=== PATIENT | male | born 1955 | race Hispanic/Latino ===

== ENCOUNTER → 2018-04-18 | Outpatient (CLI) | payer OTHER | END | disposition home or self-care (01) | LOC: SHCH 10:30 | PROVIDERS: ATTEND Internal Medicine Cardiovascular Disease | DX: I25.10 Atherosclerotic heart disease of native coronary artery without angina pectoris (principal) | CPT/HCPCS: 93306 ==

== ENCOUNTER 2020-04-30 05:07 | Inpatient (IN) | payer OTHER ==
[~2020-04-30] VITALS: Ht 172.7 cm; Wt 71.7 kg
[2020-04-30] MEDS ORDERED: CEFTRIAXONE SODIUM 2 GM VIAL ONE (05:26)
[2020-04-30] MEDS ORDERED: AZITHROMYCIN 500MG+NS 250ML 250 ML IV ONE (05:27)
[2020-04-30 06:05] LABS: ABG BASE EXCESS -3.9 mmol/L (-2.0-3.0); ABG HCO3 18.4 mmol/L (21.0-28.0); ABG OXYGEN SATURATION 94.8 % (95.0-99.0); ABG PCO2 27 mmHg (35-48)
[2020-04-30 06:23] LABS: INR 0.92 (0.85-1.15); PARTIAL THROMBOPLASTIN TIME 36.4 SEC (26.3-35.5)
[2020-04-30 06:34] LABS: APPEARANCE,URINE CLEAR (CLEAR); BILIRUBIN,URINE NEGATIVE (NEGATIVE); COLOR,URINE YELLOW (YELLOW); GLUCOSE, URINE (UA) NEGATIVE (NEGATIVE); KETONES,URINE NEGATIVE (NEGATIVE); LEUKOCYTE ESTERASE ,URINE NEGATIVE (NEGATIVE); NITRATE,URINE NEGATIVE (NEGATIVE); OCCULT BLOOD,URINE NEGATIVE (NEGATIVE); PH,URINE 5.5 (5.0-8.0); PROTEIN,URINE 30 mg/dL (NEGATIVE)
[2020-04-30 06:38] LABS: ALBUMIN 2.7 g/dL (3.5-5.0); BILIRUBIN,TOTAL 0.6 mg/dL (0.2-1.0); CREATININE 1.7 mg/dL (0.5-1.5); POTASSIUM 3.9 mmol/L (3.5-5.1); TOTAL PROTEIN, SERUM 6.7 g/dL (6.0-8.3)
[2020-04-30 06:55] LABS: B-TYPE NATRIURETIC PEPTIDE 334 pg/mL (0-100)
[2020-04-30 07:17] LABS: BASOPHILS % (AUTO) 0.1 % (0.0-5.0); EOSINOPHILS % (AUTO) 1.7 % (0.0-8.0); HEMATOCRIT 39.7 % (42-54); LYMPHOCYTES % (AUTO) 12.1 % (21.0-51.0); MEAN CORPUSCULAR HEMOGLOBIN 28.1 pg (27.0-33.0); MEAN CORPUSCULAR HGB CONC 34.3 g/dL (32.0-36.0); MONOCYTES % (AUTO) 10.6 % (3.0-13.0); NEUTROPHILS % (AUTO) 75.1 % (40.0-77.0); PLATELET COUNT (AUTO) 170 K/uL (130-400); RED BLOOD CELL COUNT(AUTO) 4.84 MIL/uL (4.50-6.20); RED CELL DISTRIBUTION WIDTH 13.2 % (11.0-15.5)
[2020-04-30] MEDS: FAMOTIDINE 20MG TAB 20 MG TAB PO SCH ×2 (09:00→21:00)
[2020-04-30] MEDS ORDERED: ENOXAPARIN SODIUM 30 MG/0.3 ML SQ SCH (09:00)
[2020-04-30 09:22] LABS: BACTERIA,URINE Moderate /HPF (None Seen); RBC,URINE 0-1 /HPF (0-1); WBC,URINE 0-1 /HPF (0-1)
[2020-04-30] MEDS ORDERED: FAMOTIDINE 20MG TAB 20 MG TAB ONE ×2 (09:50→21:02)
[2020-04-30] MEDS ORDERED: ENOXAPARIN SODIUM 30 MG/0.3 ML SQ ONE (09:50)
[2020-04-30 10:34] LABS: ABG BASE EXCESS -0.2 mmol/L (-2.0-3.0); ABG HCO3 22.7 mmol/L (21.0-28.0); ABG PCO2 33 mmHg (35-48)
[2020-04-30 11:17] LABS: CRP QUANTITATIVE 197.4 mg/L (0.00-9.0)
[2020-04-30] MEDS: METHYLPREDNISOLONE SOD SUCC 40MG/ML 1ML IVP SCH ×2 (11:45→19:45)
[2020-04-30] MEDS: CEFEPIME HCL 2 GM VIAL IVP SCH ×2 (11:45→23:45)
[2020-04-30] MEDS ORDERED: CEFEPIME HCL 2 GM VIAL ONE (12:05)
--- NOTE | 2020-04-30 13:03 | NUR ---
DCP: HOME Sw spoke to pt's Alberta Roa [phone]. Pt lives with , he is on SSD. 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 Pt is independent, no DME or HH services reports . Pt is seen at [facility] and has pt assistance programs that send kidney meds by mail quarterly. Plan [place] home [place] Addendum: 04/30/20 at 1306 by YULIANA MARIE SS Amended: Links added.
[2020-04-30] MEDS ORDERED: METHYLPREDNISOLONE SOD SUCC 40MG/ML 1ML ONE ×2 (13:38→22:24)
[2020-04-30] MEDS: FUROSEMIDE 10 MG/ML 4ML VIAL IV SCH ×2 (15:00→23:00)
[2020-04-30] MEDS ORDERED: FUROSEMIDE 10 MG/ML 4ML VIAL ONE (16:38)
[2020-04-30] MEDS: DOXYCYCLINE HYCLATE 100 MG TABLET PO SCH (21:00)
[2020-04-30] MEDS: TACROLIMUS 0.5 MG CAPSULE PO SCH (21:00)
[2020-04-30] MEDS: ENOXAPARIN SODIUM 100 MG/1 ML SQ SCH (21:00)
[2020-04-30] MEDS ORDERED: DOXYCYCLINE HYCLATE 100 MG TABLET PO ONE (21:01)
[2020-04-30] MEDS ORDERED: ENOXAPARIN SODIUM 100 MG/1 ML SQ ONE (22:33)
[2020-05-01] MEDS ORDERED: METHYLPREDNISOLONE SOD SUCC 125MG/2ML VIAL ONE (01:24)
[2020-05-01] MEDS ORDERED: CEFEPIME HCL 2 GM VIAL ONE ×2 (01:24→14:38)
[2020-05-01] MEDS ORDERED: FUROSEMIDE 10 MG/ML 4ML VIAL ONE ×3 (01:32→18:24)
[2020-05-01] MEDS: METHYLPREDNISOLONE SOD SUCC 40MG/ML 1ML IVP SCH ×3 (03:45→19:45)
[2020-05-01 04:50] LABS: EOSINOPHILS % (AUTO) 2.1 % (0.0-8.0); HEMATOCRIT 41.1 % (42-54); LYMPHOCYTES % (AUTO) 11.5 % (21.0-51.0); MEAN CORPUSCULAR HEMOGLOBIN 27.4 pg (27.0-33.0); MEAN CORPUSCULAR HGB CONC 33.8 g/dL (32.0-36.0); MEAN CORPUSCULAR VOLUME 81.1 fL (79-99); MONOCYTES % (AUTO) 9.6 % (3.0-13.0); NEUTROPHILS % (AUTO) 76.3 % (40.0-77.0); PLATELET COUNT (AUTO) 204 K/uL (130-400); RED BLOOD CELL COUNT(AUTO) 5.07 MIL/uL (4.50-6.20); RED CELL DISTRIBUTION WIDTH 13.4 % (11.0-15.5); WHITE BLOOD COUNT (AUTO) 6.2 K/uL (4.8-10.8)
[2020-05-01 05:23] LABS: ALBUMIN 2.2 g/dL (3.5-5.0); BILIRUBIN,TOTAL 0.7 mg/dL (0.2-1.0); CREATININE 1.5 mg/dL (0.5-1.5); MAGNESIUM 2.4 mg/dL (1.80-2.40); PHOSPHORUS 3.1 mg/dL (2.5-4.9); POTASSIUM 4.5 mmol/L (3.5-5.1); TOTAL PROTEIN, SERUM 6.8 g/dL (6.0-8.3); URIC ACID 7.6 mg/dL (2.6-7.2)
[2020-05-01] MEDS: FUROSEMIDE 10 MG/ML 4ML VIAL IV SCH ×3 (07:00→23:00)
[2020-05-01] MEDS ORDERED: METHYLPREDNISOLONE SOD SUCC 40MG/ML 1ML ONE ×2 (08:26→18:24)
[2020-05-01] MEDS ORDERED: ENOXAPARIN SODIUM 100 MG/1 ML SQ ONE (08:26)
[2020-05-01] MEDS ORDERED: DOXYCYCLINE HYCLATE 100 MG TABLET PO ONE ×2 (08:26→20:06)
[2020-05-01] MEDS ORDERED: FAMOTIDINE 20MG TAB 20 MG TAB ONE ×2 (08:27→20:28)
[2020-05-01] MEDS: DOXYCYCLINE HYCLATE 100 MG TABLET PO SCH ×2 (09:00→21:00)
[2020-05-01] MEDS: ENOXAPARIN SODIUM 100 MG/1 ML SQ SCH ×2 (09:00→21:00)
[2020-05-01] MEDS: TACROLIMUS 0.5 MG CAPSULE PO SCH ×2 (09:00→21:00)
[2020-05-01] MEDS: FAMOTIDINE 20MG TAB 20 MG TAB PO SCH ×2 (09:00→21:00)
[2020-05-01] MEDS: CEFEPIME HCL 2 GM VIAL IVP SCH ×2 (11:45→23:45)
--- NOTE | 2020-05-01 16:51 | NUR ---
very tired and sob, cannot answer questions. pulling off 02 sensor, nc, and trying to climb off stretcher, screaming HELP HELD, er nurse in and adm database suspended
[2020-05-01] MEDS ORDERED: LORAZEPAM 0.5 MG TABLET ONE (17:33)
--- NOTE | 2020-05-01 19:49 | NUR ---
Pt refuses to wear hiflo cannula,will not let me place him on it.States that he just wanted to be left alone and .Maycol IBRAHIM from ER was notified.He stated that he will try and get a hold of his daughter.
[2020-05-01] MEDS ORDERED: ENOXAPARIN SODIUM 80 MG/0.8 ML SQ ONE (20:06)
--- NOTE | 2020-05-01 20:06 | NUR ---
Antonia douglass and I were able to convince pt to wear hiflo at 60L 100% pt was 60% saturation, now he sating 100%
[2020-05-02] MEDS: METHYLPREDNISOLONE SOD SUCC 40MG/ML 1ML IVP SCH ×2 (03:45→11:45)
[2020-05-02] MEDS: FUROSEMIDE 10 MG/ML 4ML VIAL IV SCH ×3 (07:00→23:46)
[2020-05-02] MEDS: ENOXAPARIN SODIUM 100 MG/1 ML SQ SCH ×2 (09:00→20:19)
[2020-05-02] MEDS: FAMOTIDINE 20MG TAB 20 MG TAB PO SCH ×2 (09:00→20:22)
[2020-05-02] MEDS: TACROLIMUS 0.5 MG CAPSULE PO SCH ×2 (09:00→20:21)
[2020-05-02] MEDS: DOXYCYCLINE HYCLATE 100 MG TABLET PO SCH ×2 (09:00→20:20)
[2020-05-02] MEDS ORDERED: ENOXAPARIN SODIUM 80 MG/0.8 ML SQ ONE (09:21)
[2020-05-02] MEDS ORDERED: DOXYCYCLINE HYCLATE 100 MG TABLET PO ONE (09:22)
[2020-05-02] MEDS ORDERED: METHYLPREDNISOLONE SOD SUCC 40MG/ML 1ML ONE (09:22)
[2020-05-02] MEDS ORDERED: CEFEPIME HCL 2 GM VIAL ONE (09:23)
[2020-05-02] MEDS ORDERED: FUROSEMIDE 10 MG/ML 4ML VIAL ONE (09:23)
[2020-05-02] MEDS ORDERED: FAMOTIDINE 20MG TAB 20 MG TAB ONE (09:23)
[2020-05-02] MEDS ORDERED: LORAZEPAM 0.5 MG TABLET ONE (09:40)
[2020-05-02 10:05] LABS: BASOPHILS % (AUTO) 0.1 % (0.0-5.0); HEMATOCRIT 41.6 % (42-54); LYMPHOCYTES % (AUTO) 6.1 % (21.0-51.0); MEAN CORPUSCULAR HGB CONC 33.9 g/dL (32.0-36.0); MEAN CORPUSCULAR VOLUME 82.7 fL (79-99); MONOCYTES % (AUTO) 16.5 % (3.0-13.0); NEUTROPHILS % (AUTO) 76.7 % (40.0-77.0); PLATELET COUNT (AUTO) 286 K/uL (130-400); RED BLOOD CELL COUNT(AUTO) 5.03 MIL/uL (4.50-6.20); RED CELL DISTRIBUTION WIDTH 13.7 % (11.0-15.5); WHITE BLOOD COUNT (AUTO) 11.5 K/uL (4.8-10.8)
[2020-05-02 11:12] LABS: CREATININE 2.4 mg/dL (0.5-1.5); POTASSIUM 4.2 mmol/L (3.5-5.1)
[2020-05-02] MEDS: CEFEPIME HCL 2 GM VIAL IVP SCH ×2 (11:45→23:46)
[2020-05-02 17:30] VITALS: BP 107/73
[2020-05-02 19:48] VITALS: BP 136/65
[2020-05-02] MEDS: DEXAMETHASONE 4 MG TAB PO SCH (20:21)
[2020-05-02 23:45] VITALS: BP 146/75
[2020-05-03 04:00] VITALS: BP 143/66
[2020-05-03] MEDS: FUROSEMIDE 10 MG/ML 4ML VIAL IV SCH (06:24)
[2020-05-03 08:00] VITALS: BP 129/60
[2020-05-03] MEDS: FAMOTIDINE 20MG TAB 20 MG TAB PO SCH ×3 (08:22→21:13)
[2020-05-03] MEDS: DOXYCYCLINE HYCLATE 100 MG TABLET PO SCH ×3 (08:22→21:13)
[2020-05-03] MEDS: TACROLIMUS 0.5 MG CAPSULE PO SCH ×3 (08:23→21:13)
[2020-05-03] MEDS: ENOXAPARIN SODIUM 100 MG/1 ML SQ SCH ×2 (08:23→12:31)
[2020-05-03] MEDS: DEXAMETHASONE 4 MG TAB PO SCH (08:33)
[2020-05-03] MEDS: ASCORBIC ACID 500 MG TAB PO SCH (08:35)
[2020-05-03] MEDS ORDERED: GLUCAGON 1MG KIT 1 MG ML IM PRN (09:45)
[2020-05-03] MEDS ORDERED: ALBUTEROL SULFATE/IPRATROPIUM 103/18 MCG/PUFF 14.7 GM INHR IH PRN (10:00)
[2020-05-03] MEDS ORDERED: INSULIN HUMULIN R 100 UNIT/ML 3ML SQ SCH (11:30)
[2020-05-03 12:00] VITALS: BP 128/83
[2020-05-03] MEDS: DEXAMETHASONE SOD PHOSPHATE 4 MG/ML 1ML VIAL IV SCH (12:28)
[2020-05-03] MEDS: CEFEPIME HCL 2 GM VIAL IVP SCH (12:33)
[2020-05-03 13:51] LABS: BASOPHILS % (AUTO) 0.1 % (0.0-5.0); HEMATOCRIT 41.9 % (42-54); LYMPHOCYTES % (AUTO) 3.7 % (21.0-51.0); MEAN CORPUSCULAR HEMOGLOBIN 27.1 pg (27.0-33.0); MEAN CORPUSCULAR HGB CONC 32.9 g/dL (32.0-36.0); MEAN CORPUSCULAR VOLUME 82.2 fL (79-99); MONOCYTES % (AUTO) 12.5 % (3.0-13.0); NEUTROPHILS % (AUTO) 83.1 % (40.0-77.0); PLATELET COUNT (AUTO) 262 K/uL (130-400); RED CELL DISTRIBUTION WIDTH 13.6 % (11.0-15.5); WHITE BLOOD COUNT (AUTO) 12.4 K/uL (4.8-10.8)
[2020-05-03 14:02] LABS: POTASSIUM 4.3 mmol/L (3.5-5.1)
[2020-05-03 14:03] LABS: CREATININE 2.3 mg/dL (0.5-1.5)
[2020-05-03] MEDS ORDERED: INSULIN HUMULIN R 100 UNIT/ML 3ML IV SCH (15:30)
[2020-05-03] MEDS: SODIUM CHLORIDE 0.9% 1000ML 1,000 ML IV SCH ×2 (15:45→21:13)
[2020-05-03 16:00] VITALS: BP 142/69
--- NOTE | 2020-05-03 16:49 | NUR ---
SARINA BRADEN CURATOR OF EDUCATION NOTIFIED ABOUT THE BLOOD GLUCOSE OF 700+ SHE ORDERED ONE TIME DOSE OF 10 UNITS REGULAR IV AND IF THE PATIENT WILL REMAIN HIGH THAT TO TRANSFER THE PATIENT TO ICU FOR INSULIN DRIP. AND MOREOVER, AND IF IT WILL DROP SIGNIFICANTLY THAT TO FOLLOW THE SLIDING SCALE. ALSO NOTIFY DR. DAWSON AND THAT HE AGREE WITH THE RECOMMENDATION OF SARINA BRADEN AND VERBALIZED THAT HE WILL MAKE SOME CHANGES ON THE SLIDING SCALE.
--- NOTE | 2020-05-03 16:57 | NUR ---
RECHECKED THE SUGAR AND IT DROP TO 593. HE ORDERED TO ADMINISTER 13 UNITS OF LISPRO SQ. WILL RECHECK THE BLOOD SUGAR IN ONE HOUR.
[2020-05-03] MEDS ORDERED: INSULIN LISPRO 100 UNIT/ML 3ML SQ SCH ×2 (17:00→18:25)
[2020-05-03] MEDS: INSULIN LISPRO 100 UNIT/ML 3ML SQ SCH ×3 (17:53→21:59)
--- NOTE | 2020-05-03 18:57 | NUR ---
notified jimena wynne floral assistant that dr. pemberton made changes on the insulin lispro 5 units to 7 units as well as the sliding scale he changed it to lispro from regular and ordered a one time dose of 13 units of insulin lispro and to administer the 7 units and the sliding scale. administered total of 23 units and will recheck the blood glucose in an hour. jimena wynne verbalized that if the patient will not go down to less than 350 that the patient will be needing an insulin drip and will be transfer to icu.
--- NOTE | 2020-05-03 19:20 | NUR ---
Report given to PATRICE Leslie in ICU pt to transfer for insulin gtt.
[2020-05-03 20:11] LABS: ABG BASE EXCESS -1.1 mmol/L (-2.0-3.0); ABG HCO3 21.6 mmol/L (21.0-28.0); ABG OXYGEN SATURATION 93.6 % (95.0-99.0); ABG PCO2 31 mmHg (35-48)
--- NOTE | 2020-05-03 20:35 | NUR ---
TRANSFER PT TRANSFER TO ICU BED 212 VIA BED.
[2020-05-03 20:49] VITALS: BP 143/80
[2020-05-03] MEDS: INSULIN GLARGINE 100 UNITS/ML 10 ML VIAL SQ SCH (21:59)
[2020-05-03 23:15] VITALS: BP 146/71
[2020-05-04 00:38] VITALS: BP 132/66
--- NOTE | 2020-05-04 03:54 | NUR ---
TRANSFER PT RECEIVED BACK ON UNIT FROM ICU, ORIENTED TO SELF ONLY. O2 SAT 94-96 ON NRB. PT ATTEMPTING TO REMOVE NRB 1:1 AT BEDSIDE PT REQUIRING CONTINUOS ASSISTANCE TO KEEP NRB ON.
[2020-05-04 04:09] VITALS: BP 153/78
[2020-05-04 05:50] LABS: BASOPHILS % (AUTO) 0.1 % (0.0-5.0); HEMATOCRIT 47.1 % (42-54); LYMPHOCYTES % (AUTO) 4.4 % (21.0-51.0); MEAN CORPUSCULAR HEMOGLOBIN 27.7 pg (27.0-33.0); MEAN CORPUSCULAR HGB CONC 33.8 g/dL (32.0-36.0); MEAN CORPUSCULAR VOLUME 82.1 fL (79-99); MONOCYTES % (AUTO) 10.5 % (3.0-13.0); PLATELET COUNT (AUTO) 282 K/uL (130-400); RED BLOOD CELL COUNT(AUTO) 5.74 MIL/uL (4.50-6.20); RED CELL DISTRIBUTION WIDTH 13.6 % (11.0-15.5); WHITE BLOOD COUNT (AUTO) 17.4 K/uL (4.8-10.8)
[2020-05-04] MEDS ORDERED: SODIUM CHLORIDE 0.9% 500ML 500 ML IV ONE (05:59)
[2020-05-04] MEDS: SODIUM CHLORIDE 0.9% 1000ML 1,000 ML IV SCH (06:06)
[2020-05-04 06:07] LABS: ALBUMIN 2.9 g/dL (3.5-5.0); BILIRUBIN,TOTAL 0.6 mg/dL (0.2-1.0); CREATININE 1.7 mg/dL (0.5-1.5); CRP QUANTITATIVE 54.3 mg/L (0.00-9.0); MAGNESIUM 2.9 mg/dL (1.80-2.40); POTASSIUM 3.7 mmol/L (3.5-5.1); TOTAL PROTEIN, SERUM 7.2 g/dL (6.0-8.3)
--- NOTE | 2020-05-04 06:29 | NUR ---
NA NOTED NA ON AM LABS 153 PT DUE FOR ADDITIONAL 0.[address] PAGE TO DR DAWSON TO VERIFY CONTINUE TO GIVE. AWAITING CALL BACK.
[2020-05-04] MEDS: INSULIN LISPRO 100 UNIT/ML 3ML SQ SCH ×8 (06:38→20:44)
[2020-05-04] MEDS: DEXTROSE 5%-WATER 1,000 ML IV SCH ×2 (10:22→21:19)
[2020-05-04] MEDS: ASCORBIC ACID 500 MG TAB PO SCH (10:23)
[2020-05-04] MEDS: ENOXAPARIN SODIUM 100 MG/1 ML SQ SCH (10:23)
[2020-05-04] MEDS: TACROLIMUS 0.5 MG CAPSULE PO SCH ×2 (10:23→21:17)
[2020-05-04] MEDS: DEXAMETHASONE SOD PHOSPHATE 4 MG/ML 1ML VIAL IV SCH (10:24)
[2020-05-04] MEDS: DOXYCYCLINE HYCLATE 100 MG TABLET PO SCH ×2 (10:24→21:17)
--- NOTE | 2020-05-04 10:34 | NUR ---
DYSPHAGIA EVALUATION COMPLETED. -S/S OF ASPIRATION. RECOMMEND MECHANICAL SOFT/CHOPPED, THIN LIQUIDS; PILLS CRUSHED WITH APPLESAUCE. CONSIDER SUPPLEMENTATION WITH IV VS NG TUBE DUE TO POOR INTAKE SECONDARY TO CONFUSION. WAREHOUSE LEAD COORDINATED CARE AND RECOMMENDATIONS WITH NURSE GABRIEL. Addendum: 05/04/20 at 1037 by SERENA IQBAL, [facility] Amended: Links added.
--- NOTE | 2020-05-04 14:23 | NUR ---
FOLLOW UP COMPLETED. LEAD SYSTEMS ARCHITECT COORDINATED CARE WITH NURSE. NURSING ATTEMPTED TO PLACE NG TUBE, HOWEVER, Pt REFUSING, AND PULLING IT OUT. NURSE ATTEMPTED MEDICATIONS THIS AM WITH Pt SPITTING THEM OUT. RECOMMEND P.O. SUPPLEMENTATION VIA IV IF NG TUBE IS NOT SUCCESSFULLY PLACED. NURSING VERBALIZED COMPLIANCE WITH RECOMMENDATIONS. LEAD SYSTEMS ARCHITECT WILL CONTINUE TO FOLLOW Pt. Addendum: 05/04/20 at [address] Amended: Links added.
[2020-05-04 16:00] VITALS: BP 141/69
[2020-05-04 19:25] VITALS: BP 149/78
[2020-05-04 19:29] VITALS: BP 148/81
[2020-05-04] MEDS: INSULIN GLARGINE 100 UNITS/ML 10 ML VIAL SQ SCH (20:45)
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
--- NOTE | 2020-05-04 23:40 | NUR ---
PLASMA CONSENT/CODE STATUS TELEPHONE CALL TO CONSENT RECEIVED FOR PLASMA ADMINISTRATION. VERIFIED CODE STATUS WITH SHE WISHES PT TO BE FULL CODE.
[2020-05-05 03:00] VITALS: BP 165/77
[2020-05-05 05:32] LABS: BASOPHILS % (AUTO) 0.2 % (0.0-5.0); HEMATOCRIT 43.4 % (42-54); LYMPHOCYTES % (AUTO) 5.9 % (21.0-51.0); MEAN CORPUSCULAR HEMOGLOBIN 27.3 pg (27.0-33.0); MEAN CORPUSCULAR HGB CONC 32.9 g/dL (32.0-36.0); MEAN CORPUSCULAR VOLUME 82.8 fL (79-99); MONOCYTES % (AUTO) 8.9 % (3.0-13.0); NEUTROPHILS % (AUTO) 83.6 % (40.0-77.0); PLATELET COUNT (AUTO) 205 K/uL (130-400); RED BLOOD CELL COUNT(AUTO) 5.24 MIL/uL (4.50-6.20); RED CELL DISTRIBUTION WIDTH 13.7 % (11.0-15.5); WHITE BLOOD COUNT (AUTO) 17.8 K/uL (4.8-10.8)
[2020-05-05 05:45] LABS: CREATININE 1.7 mg/dL (0.5-1.5); CRP QUANTITATIVE 49.1 mg/L (0.00-9.0); MAGNESIUM 2.9 mg/dL (1.80-2.40); PHOSPHORUS 3.4 mg/dL (2.5-4.9); URIC ACID 9.9 mg/dL (2.6-7.2)
[2020-05-05 05:58] LABS: HEMOGLOBIN A1C 8.8 % (4.0-6.0)
--- NOTE | 2020-05-05 05:58 | NUR ---
GLUCOSE CALL FROM LAB FOR RESULT OF GLUCOSE OF 400 HOWEVER PT HAS D5 INFUSING IN SAME ARM AND PUMP WAS NOT ON HOLD DURING DRAW, ACCUCHECK = 303.
[2020-05-05] MEDS: INSULIN LISPRO 100 UNIT/ML 3ML SQ SCH ×7 (06:25→20:50)
[2020-05-05] MEDS: DEXAMETHASONE SOD PHOSPHATE 4 MG/ML 1ML VIAL IV SCH (07:43)
--- NOTE | 2020-05-05 08:00 | NUR ---
ASSESSMENT PT IS AWAKE BUT CONFUSED. RESPONDS TO NAME BUT VERBALIZES INCOHERENT WORDS. SITTING UPRIGHT IN BED WITH HOB UP AT 40 DEGREES, SIDE RAILS UP X4 WITH 1:[address]. O2 VIA NONREBREATHER MASK AT 15LPM, O2 SAT 98-100%. PATIENT FLAILS HIS ARMS PERIODICALLY. BILATERAL MITTENS IN PLACE NO BRUISING NOTED TO WRISTS. PATIENT REMOVED HIS IV, NEW PIV STARTED TO RIGHT FA 20G. IV FLUIDS INFUSING ORDERED. CONTINUING TO MONITOR
[2020-05-05] MEDS: TACROLIMUS 0.5 MG CAPSULE PO SCH ×2 (08:55→20:48)
[2020-05-05] MEDS: FAMOTIDINE 20MG TAB 20 MG TAB PO SCH (08:55)
[2020-05-05] MEDS: DOXYCYCLINE HYCLATE 100 MG TABLET PO SCH ×2 (08:55→20:48)
[2020-05-05] MEDS: ENOXAPARIN SODIUM 100 MG/1 ML SQ SCH (08:56)
[2020-05-05] MEDS: ASCORBIC ACID 500 MG TAB PO SCH (08:56)
[2020-05-05] MEDS: DEXTROSE 5%-WATER 1,000 ML IV SCH (10:17)
--- NOTE | 2020-05-05 10:37 | NUR ---
FOLLOW UP COMPLETED. Pt CONTINUES TO BE CONFUSED WITH 1:1 SITTER AT THIS TIME. Pt WITH DIFFICULTY TAKING MEDICATIONS AT THIS TIME DUE TO POOR MENTAL STATUS. Pt WITH HIGH SODIUM LEVEL AT THIS TIME. NG IS NOT IN PLACE DUE TO Pt NOT ALLOWING PLACEMENT. Pt CURRENTLY ON D5 WATER. RECOMMEND CONTINUED ATTEMPT FOR P.O. TOLERATED BY Pt. TUG BOAT CAPTAIN COORDINATED WITH NURSE FRIAS. TUG BOAT CAPTAIN WILL CONTINUE TO FOLLOW Pt. Addendum: 05/05/20 at 1044 by SERENA IQBAL, [facility] Amended: Links added.
[2020-05-05] MEDS ORDERED: TACR1 PO (10:59)
[2020-05-05] MEDS ORDERED: LISI40TA4 PO (10:59)
[2020-05-05] MEDS ORDERED: ATOR20TA65 PO (10:59)
[2020-05-05] MEDS ORDERED: TACR.5 PO (10:59)
[2020-05-05] MEDS ORDERED: AMLO10TA7 PO (10:59)
[2020-05-05 11:00] VITALS: BP 139/60
[2020-05-05] MEDS ORDERED: INSULIN GLARGINE 100 UNITS/ML 10 ML VIAL SQ SCH (11:00)
--- NOTE | 2020-05-05 13:00 | NUR ---
DR DAWSON TELE MED DONE VIA TABLET
[2020-05-05 16:00] VITALS: BP 155/70
[2020-05-05 19:00] VITALS: BP 154/80
[2020-05-05] MEDS ORDERED: ACETAMINOPHEN 325 MG TAB PO ONE (20:45)
--- NOTE | 2020-05-05 20:45 | NUR ---
BS/HR/TEMP BS 95, PT RECEIVED 20 UNITS LANTUS AT 1200 AND IS SCHEDULED NOW HAS NOT BEEN TAKING PO BUT IS ON D5 @ 75 ML. HR SUSTAINING 120S, TEMP 100.5 AXILLARY. OUTSIDE SALES EXECUTIVE PROVIDER COLLEGE PRESIDENT AJ NOTIFIED OF ABOVE AND ORDERS RECEIVED TO HOLD LANTUS, INCREASE D5 TO 100 ML HR AND GIVE TYLENOL 650 X1.
[2020-05-05] MEDS: INSULIN GLARGINE 100 UNITS/ML 10 ML VIAL SQ SCH (20:51)
[2020-05-05 23:08] VITALS: BP 151/82
[2020-05-06] MEDS: DEXTROSE 5%-WATER 1,000 ML IV SCH ×3 (00:44→21:54)
[2020-05-06 03:14] VITALS: BP 161/83
[2020-05-06 05:09] LABS: BASOPHILS % (AUTO) 0.2 % (0.0-5.0); EOSINOPHILS % (AUTO) 0.1 % (0.0-8.0); HEMATOCRIT 47.7 % (42-54); LYMPHOCYTES % (AUTO) 9.3 % (21.0-51.0); MEAN CORPUSCULAR HEMOGLOBIN 27.7 pg (27.0-33.0); MEAN CORPUSCULAR HGB CONC 32.5 g/dL (32.0-36.0); MEAN CORPUSCULAR VOLUME 85.2 fL (79-99); MONOCYTES % (AUTO) 12.3 % (3.0-13.0); NEUTROPHILS % (AUTO) 76.7 % (40.0-77.0); PLATELET COUNT (AUTO) 161 K/uL (130-400); RED CELL DISTRIBUTION WIDTH 13.8 % (11.0-15.5); WHITE BLOOD COUNT (AUTO) 16.3 K/uL (4.8-10.8)
[2020-05-06 05:24] LABS: ALBUMIN 2.5 g/dL (3.5-5.0); BILIRUBIN,TOTAL 0.8 mg/dL (0.2-1.0); CREATININE 1.7 mg/dL (0.5-1.5); CRP QUANTITATIVE 34.5 mg/L (0.00-9.0); POTASSIUM 4.7 mmol/L (3.5-5.1); TOTAL PROTEIN, SERUM 6.3 g/dL (6.0-8.3)
[2020-05-06] MEDS: INSULIN LISPRO 100 UNIT/ML 3ML SQ SCH ×7 (06:10→21:53)
[2020-05-06 08:00] VITALS: BP 142/73
--- NOTE | 2020-05-06 08:00 | NUR ---
ASSESSMENT PT IS LAYING UPRIGHT IN BED, RESPONDS WHEN ASKED HIS NAME. SPEAKS CONFUSED/INCOHERENT PHRASES. PATIENT WAS REORIENTED TO PLACE AND TIME. PATIENT IS NONCOMBATIVE. PATIENT IS SITTING UPRIGHT IN BED HOB UP AT 35 DEGREES. BREATHING PATTERN IS EVEN AND UNLABORED WHILE AT REST, TACHYPNEA NOTED. CURRENTLY ON O2 VIA NONREBTREATHER MASK. NO VISIBLE SIGNS OF DISTRESS NOTED WHILE AT REST. BILATERAL MITTENS IN PLACE, NO BRUISING NOTED TO WRISTS, CAP REFILL CHECKED TO FINGERS. AM MEDS GIVEN WITH APPLE JUICE AND SYRINGE, NO CHOKING NO GAGGING NO SPITTING NOTED. PT WAS ABLE TO EAT PART OF BREAKFAST WITH NURSE AIDE ASSISTANCE. SIDE RAILS UP X4 CALL LIGHT WITHIN REACH, BLINDS OPEN. 1:1 SITTER AT BEDSIDE.
[2020-05-06] MEDS: DOXYCYCLINE HYCLATE 100 MG TABLET PO SCH (08:17)
[2020-05-06] MEDS: ASCORBIC ACID 500 MG TAB PO SCH (08:17)
[2020-05-06] MEDS: TACROLIMUS 0.5 MG CAPSULE PO SCH ×2 (08:17→21:51)
[2020-05-06] MEDS: ENOXAPARIN SODIUM 100 MG/1 ML SQ SCH (08:17)
[2020-05-06] MEDS: FAMOTIDINE 20MG TAB 20 MG TAB PO SCH (08:17)
[2020-05-06] MEDS: DEXAMETHASONE SOD PHOSPHATE 4 MG/ML 1ML VIAL IV SCH (08:18)
[2020-05-06] MEDS: INSULIN GLARGINE 100 UNITS/ML 10 ML VIAL SQ SCH ×3 (08:38→21:54)
[2020-05-06] MEDS: LABETALOL 20 MG/4 ML DISP.SYRIN IV PRN (10:18)
--- NOTE | 2020-05-06 10:20 | NUR ---
HR VIA TELE >120 LABETALOL 10MG IV PUSH GIVEN CONTINUING TO MONITOR
[2020-05-06 11:00] VITALS: BP 132/62
--- NOTE | 2020-05-06 11:00 | NUR ---
O2 VIA NONREBREATHER DECREASED TO 10LPM O2 SAT 98-99%, CONTINUING TO MONITOR
--- NOTE | 2020-05-06 11:45 | NUR ---
O2 SAT MAINTAINS ABOVE 96% WHILE ON 10LPM NONRBREATHER AT THIS TIME 1:1 REMAINS AT BEDSIDE.
--- NOTE | 2020-05-06 12:28 | NUR ---
O2 SAT 91% ON NRB AT 10LPM PLACED NRB AT 15LPM. O2 SAT BACK UP TO 99%
--- NOTE | 2020-05-06 16:00 | NUR ---
STATUS REMAINS ON O2 VIA NRB MASK AT 15LPM. O2 SAT 96-99%. 1:1 SITTER REMAINS AT BEDSIDE.
--- NOTE | 2020-05-06 18:30 | NUR ---
HR REMAINS 80-90S SR PT RESTING IN BED, 1:1 SITTER AT BEDSIDE. O2 SAT REMAINS 98-99% ON 15LPM NRB MASK.
[2020-05-06 20:30] VITALS: BP 126/66
[2020-05-07] VITALS (7 sets, daily range): BP systolic 139–159; BP diastolic 63–74
--- NOTE | 2020-05-07 04:04 | NUR ---
02 SAT 02 SAT 100% ON NRB @15L, O2 DECREASED TO 10 L PT MAINTAINING 02 SAT >95%.
[2020-05-07] MEDS: DEXTROSE 5%-WATER 1,000 ML IV SCH ×2 (06:15→15:33)
[2020-05-07] MEDS: INSULIN LISPRO 100 UNIT/ML 3ML SQ SCH ×7 (06:16→21:00)
[2020-05-07 07:55] LABS: BASOPHILS % (AUTO) 0.1 % (0.0-5.0); EOSINOPHILS % (AUTO) 1.2 % (0.0-8.0); HEMATOCRIT 46.6 % (42-54); LYMPHOCYTES % (AUTO) 7.1 % (21.0-51.0); MEAN CORPUSCULAR HEMOGLOBIN 27.1 pg (27.0-33.0); MEAN CORPUSCULAR HGB CONC 30.9 g/dL (32.0-36.0); MEAN CORPUSCULAR VOLUME 87.6 fL (79-99); MONOCYTES % (AUTO) 8.2 % (3.0-13.0); NEUTROPHILS % (AUTO) 82.4 % (40.0-77.0); PLATELET COUNT (AUTO) 134 K/uL (130-400); RED BLOOD CELL COUNT(AUTO) 5.32 MIL/uL (4.50-6.20); RED CELL DISTRIBUTION WIDTH 14.1 % (11.0-15.5); WHITE BLOOD COUNT (AUTO) 20.7 K/uL (4.8-10.8)
--- NOTE | 2020-05-07 08:00 | NUR ---
RECEIVED PATIENT ON BED WITH NO C/O SOB NOR PAIN. HE IS ON NON-REBREATHER 100% 15L. FULL ASSESSMENT DONE. PT IS A/0 X 2. SITTER AT BEDSIDE. MAINTAINED ENHANCED ISOLATION.
[2020-05-07] MEDS: DEXAMETHASONE SOD PHOSPHATE 4 MG/ML 1ML VIAL IV SCH (08:10)
[2020-05-07] MEDS: FAMOTIDINE 20MG TAB 20 MG TAB PO SCH (08:10)
[2020-05-07] MEDS: ASCORBIC ACID 500 MG TAB PO SCH (08:11)
[2020-05-07] MEDS: ENOXAPARIN SODIUM 100 MG/1 ML SQ SCH (08:12)
[2020-05-07] MEDS: TACROLIMUS 0.5 MG CAPSULE PO SCH ×2 (08:20→21:49)
[2020-05-07 08:44] LABS: ALBUMIN 2.2 g/dL (3.5-5.0); BILIRUBIN,TOTAL 0.7 mg/dL (0.2-1.0); CREATININE 1.5 mg/dL (0.5-1.5); CRP QUANTITATIVE 13.4 mg/L (0.00-9.0); POTASSIUM 4.7 mmol/L (3.5-5.1); TOTAL PROTEIN, SERUM 5.8 g/dL (6.0-8.3)
--- NOTE | 2020-05-07 10:56 | NUR ---
TELE MED CONDUCTED BY DR. DAWSON. INFORMED MD ABOUT HEMOPTYSIS. MD SAID TO MAKE PULMO AWARE OF THIS. PATIENT IS ON LOVENOX.
--- NOTE | 2020-05-07 11:10 | NUR ---
INFORMED BECKIE HARRISON ABOUT HEMOPTYSIS. DISCHARGE RN SAID TO KEEP MONITORING FOR NOW AND TO CALL HER IF IT PERSISTS.
--- NOTE | 2020-05-07 12:55 | NUR ---
DECREASED O2 FLOW OF NON-REBREATHER TO 12L. O2 SAT:97%. PATIENT APPEARS COMFORTABLE. PT DENIES SOB.
--- NOTE | 2020-05-07 13:15 | NUR ---
FOLLOW UP COMPLETED. MARKETING REPS SPORTS AND ENTERTAINMENT COORDINATED WITH NURSE ESCOBAR. Pt CURRENTLY REQUIRING ASSISTANCE DURING P.O. Pt WITH IMPROVED ALERTNESS AND COOPERATION. Pt CURRENTLY ON 12L VIA NON-REBREATHER AT 97% DURING P.O. RECOMMEND CONTINUED MECHANICAL SOFT/CHOPPED, THIN LIQUIDS LIQUIDS; PILLS CRUSHED WITH APPLESAUCE. MARKETING REPS SPORTS AND ENTERTAINMENT WILL CONTINUE TO FOLLOW Pt. Addendum: 05/07/20 at 1326 by SERENA IQBAL [facility] Amended: Links added.
--- NOTE | 2020-05-07 13:30 | NUR ---
DECREASED O2 FLOW TO 10L PER NRB. O2 SAT: 100%. PATIENT IS ASLEEP AT THIS TIME.
[2020-05-07] MEDS ORDERED: SODIUM CHLORIDE 0.9% 250 ML IV ONE (13:34)
[2020-05-07] MEDS ORDERED: AMLODIPINE BESYLATE 5 MG TAB PO SCH (13:45)
--- NOTE | 2020-05-07 13:45 | NUR ---
COMMENCED CONVALESCENT PLASMA TRANSFUSION ORDERED BY .
--- NOTE | 2020-05-07 14:58 | NUR ---
1ST UNIT OF CONVALESCENT PLASMA TRANSFUSED WITHOUT COMPLICATIONS.
--- NOTE | 2020-05-07 17:06 | NUR ---
RDSCREEN - LOS X 7 Pt positive for COVID-19. Modified diet to 75gm CCD. LBM 05/03/20. Hx of Renal transplant, Prograf. Vitamin C supplementation in place. Prograf in place. WBC 20.7, BUN 52, GFR 50, BG 199, Alb 2.2, BNP 334. Recommend 60mL ProMod BID Recommend 500mg Vitamin C (BID), 220mg ZnSO4 (QD) Recommend stool softener/laxative as medically feasible RD to continue to monitor. Please notify as additional nutrition concerns arise. Thank you.
--- NOTE | 2020-05-07 17:30 | NUR ---
2ND UNIT OF CONVALESCENT PLASMA COMPLETED WITHOUT TRANSFUSION REACTION. VITALS RECORDED ACCORDINGLY.
[2020-05-07] MEDS: INSULIN GLARGINE 100 UNITS/ML 10 ML VIAL SQ SCH (21:00)
[2020-05-07] MEDS: LISINOPRIL 10 MG TABLET PO SCH (21:49)
--- NOTE | 2020-05-07 21:52 | NUR ---
BS 80 BS 80 PT SCHEDULED FOR 25 UNITS LANTUS, HAS D5W @100 INFUSING REVIEWED WITH DONOR SUPPORT TECHNICIAN CLINICAL APPLICATION CONSULTANT AJ ORDER TO HOLD LANTUS TONIGHT.
[2020-05-08 03:51] VITALS: BP 140/60
[2020-05-08] MEDS: DEXTROSE 5%-WATER 1,000 ML IV SCH ×3 (04:02→21:34)
[2020-05-08 04:57] LABS: ABG HCO3 22.1 mmol/L (21.0-28.0); ABG OXYGEN SATURATION 84.7 % (95.0-99.0); ABG PCO2 33 mmHg (35-48)
[2020-05-08] MEDS: INSULIN LISPRO 100 UNIT/ML 3ML SQ SCH ×7 (06:22→21:32)
--- NOTE | 2020-05-08 06:48 | NUR ---
PM SHIFT SUMMARY PT RECEIVED A & OX2 TO SELF AND PLACE KNOWS YEAR BUT NOT MONTH/DATE. 02 SAT 94% ON NRB @10 L, ABLE TO REMAIN AT 10 L UNTIL APPROX 2300 THEN O2 SAT DECREASED TO MID 80S WITH MOVEMENT AND TALKING NRB BACK UP TO 15L O2 SAT REMAINS 91-94%. SITTER AT BEDSIDE. PT COOPERATIVE NOT PULLING AT TUBING/OXYGEN MITTEN REMOVED. AV FISTUAL TO LEFT ARM + BRUIT/THRILL. NO OTHER CHANGES FROM BASELINE SHIFT ASSESSMENT/ACUTE EVENTS.
[2020-05-08 08:00] VITALS: BP 152/64
[2020-05-08] MEDS: ENOXAPARIN SODIUM 100 MG/1 ML SQ SCH (09:33)
[2020-05-08] MEDS: DEXAMETHASONE SOD PHOSPHATE 4 MG/ML 1ML VIAL IV SCH (09:34)
[2020-05-08] MEDS: LISINOPRIL 10 MG TABLET PO SCH ×2 (09:34→21:33)
[2020-05-08] MEDS: TACROLIMUS 0.5 MG CAPSULE PO SCH ×2 (09:34→21:33)
[2020-05-08] MEDS: AMLODIPINE BESYLATE 5 MG TAB PO SCH (09:35)
[2020-05-08] MEDS: ASCORBIC ACID 500 MG TAB PO SCH (09:35)
[2020-05-08] MEDS ORDERED: PHARMACY COMMUNICATION MISC SCH (10:30)
[2020-05-08 11:00] VITALS: BP 141/53
--- NOTE | 2020-05-08 13:07 | NUR ---
Pt refused breakfast and lunch. Had 25% of glucerna for lunch. No insulin administered BS 154.
[2020-05-08 16:00] VITALS: BP 136/63
[2020-05-08 20:48] VITALS: BP 123/64
[2020-05-08] MEDS: INSULIN GLARGINE 100 UNITS/ML 10 ML VIAL SQ SCH (21:32)
[2020-05-08] MEDS: METOPROLOL TARTRATE 25 MG TAB PO SCH (21:33)
[2020-05-09] VITALS: BP 148/75
[2020-05-09 03:48] VITALS: BP 115/59
[2020-05-09 05:58] LABS: BASOPHILS % (AUTO) 0.1 % (0.0-5.0); EOSINOPHILS % (AUTO) 1.8 % (0.0-8.0); HEMATOCRIT 42.8 % (42-54); MEAN CORPUSCULAR HEMOGLOBIN 27.1 pg (27.0-33.0); MEAN CORPUSCULAR HGB CONC 31.8 g/dL (32.0-36.0); MEAN CORPUSCULAR VOLUME 85.3 fL (79-99); MONOCYTES % (AUTO) 10.4 % (3.0-13.0); NEUTROPHILS % (AUTO) 80.7 % (40.0-77.0); PLATELET COUNT (AUTO) 114 K/uL (130-400); RED BLOOD CELL COUNT(AUTO) 5.02 MIL/uL (4.50-6.20); RED CELL DISTRIBUTION WIDTH 13.5 % (11.0-15.5); WHITE BLOOD COUNT (AUTO) 20.7 K/uL (4.8-10.8)
[2020-05-09 06:12] LABS: ALBUMIN 1.9 g/dL (3.5-5.0); BILIRUBIN,TOTAL 0.7 mg/dL (0.2-1.0); CREATININE 1.3 mg/dL (0.5-1.5); CRP QUANTITATIVE 83.5 mg/L (0.00-9.0); POTASSIUM 4.9 mmol/L (3.5-5.1); TOTAL PROTEIN, SERUM 5.5 g/dL (6.0-8.3)
[2020-05-09] MEDS: INSULIN LISPRO 100 UNIT/ML 3ML SQ SCH ×7 (06:50→21:40)
[2020-05-09] MEDS: DEXTROSE 5%-WATER 1,000 ML IV SCH ×2 (08:25→17:38)
[2020-05-09] MEDS: LISINOPRIL 10 MG TABLET PO SCH ×2 (09:06→20:48)
[2020-05-09] MEDS: METOPROLOL TARTRATE 25 MG TAB PO SCH ×2 (09:06→20:48)
[2020-05-09] MEDS: ASCORBIC ACID 500 MG TAB PO SCH (09:07)
[2020-05-09] MEDS: DEXAMETHASONE SOD PHOSPHATE 4 MG/ML 1ML VIAL IV SCH (09:07)
[2020-05-09] MEDS: FAMOTIDINE/PF 20 MG/2 ML VIAL IV SCH (09:07)
[2020-05-09] MEDS: AMLODIPINE BESYLATE 5 MG TAB PO SCH (09:07)
[2020-05-09] MEDS: TACROLIMUS 0.5 MG CAPSULE PO SCH ×2 (09:14→20:49)
[2020-05-09] MEDS ORDERED: ENOXAPARIN SODIUM 30 MG/0.3 ML SQ SCH (10:00)
[2020-05-09 11:00] VITALS: BP 138/72
[2020-05-09 16:00] VITALS: BP 91/49
--- NOTE | 2020-05-09 16:40 | NUR ---
Attempted to prone patient. Oxygen saturations drop 60's with NRB at 15lpm, pt SOB and returned to supine with HOB elevated. Sating 91%.
[2020-05-09] MEDS: METHYLPREDNISOLONE SOD SUCC 125MG/2ML VIAL IVP SCH ×2 (17:03→21:55)
[2020-05-09 20:26] VITALS: BP 114/82
[2020-05-09] MEDS: INSULIN GLARGINE 100 UNITS/ML 10 ML VIAL SQ SCH (21:41)
[2020-05-10] VITALS (7 sets, daily range): BP systolic 98–144; BP diastolic 46–79
[2020-05-10 05:21] LABS: ABG BASE EXCESS -1.4 mmol/L (-2.0-3.0); ABG HCO3 21.7 mmol/L (21.0-28.0); ABG OXYGEN SATURATION 75.2 % (95.0-99.0); ABG PCO2 33 mmHg (35-48)
[2020-05-10 05:36] LABS: HEMATOCRIT 42.8 % (42-54); MEAN CORPUSCULAR HEMOGLOBIN 27.7 pg (27.0-33.0); MEAN CORPUSCULAR VOLUME 86.5 fL (79-99); RED BLOOD CELL COUNT(AUTO) 4.95 MIL/uL (4.50-6.20); RED CELL DISTRIBUTION WIDTH 13.2 % (11.0-15.5); WHITE BLOOD COUNT (AUTO) 22.8 K/uL (4.8-10.8)
[2020-05-10] MEDS: DEXTROSE 5%-WATER 1,000 ML IV SCH ×3 (05:42→20:51)
[2020-05-10] MEDS: METHYLPREDNISOLONE SOD SUCC 125MG/2ML VIAL IVP SCH ×3 (05:42→20:50)
[2020-05-10 05:51] LABS: CREATININE 1.3 mg/dL (0.5-1.5); POTASSIUM 5.2 mmol/L (3.5-5.1)
[2020-05-10 06:21] LABS: CRP QUANTITATIVE 151.7 mg/L (0.00-9.0)
[2020-05-10] MEDS: LISINOPRIL 10 MG TABLET PO SCH ×2 (10:06→20:50)
[2020-05-10] MEDS: TACROLIMUS 0.5 MG CAPSULE PO SCH ×2 (10:06→20:50)
[2020-05-10] MEDS: ASCORBIC ACID 500 MG TAB PO SCH (10:06)
[2020-05-10] MEDS: METOPROLOL TARTRATE 25 MG TAB PO SCH ×2 (10:06→20:50)
[2020-05-10] MEDS: AMLODIPINE BESYLATE 5 MG TAB PO SCH (10:06)
[2020-05-10] MEDS: ENOXAPARIN SODIUM 30 MG/0.3 ML SQ SCH (10:07)
[2020-05-10] MEDS: FAMOTIDINE/PF 20 MG/2 ML VIAL IV SCH (10:08)
[2020-05-10] MEDS ORDERED: SODIUM POLYSTYRENE SULFONATE 15 GM/60 ML ML PO SCH (10:30)
[2020-05-10] MEDS: INSULIN LISPRO 100 UNIT/ML 3ML SQ SCH ×8 (11:41→20:52)
--- NOTE | 2020-05-10 14:22 | NUR ---
PHONE CALL Family updated.
[2020-05-10] MEDS: DEXTROSE 50%-WATER 50 ML DISP.SYRIN IV PRN (20:51)
[2020-05-10] MEDS ORDERED: INSULIN GLARGINE 100 UNITS/ML 10 ML VIAL SQ SCH ×2 (21:00)
[2020-05-11 04:20] VITALS: BP 121/62
[2020-05-11 04:31] LABS: BASOPHILS % (AUTO) 0.1 % (0.0-5.0); HEMATOCRIT 43.6 % (42-54); LYMPHOCYTES % (AUTO) 2.9 % (21.0-51.0); MEAN CORPUSCULAR HEMOGLOBIN 27.8 pg (27.0-33.0); MEAN CORPUSCULAR VOLUME 84.2 fL (79-99); MONOCYTES % (AUTO) 5.7 % (3.0-13.0); NEUTROPHILS % (AUTO) 90.4 % (40.0-77.0); PLATELET COUNT (AUTO) 157 K/uL (130-400); RED BLOOD CELL COUNT(AUTO) 5.18 MIL/uL (4.50-6.20); RED CELL DISTRIBUTION WIDTH 13.3 % (11.0-15.5); WHITE BLOOD COUNT (AUTO) 25.2 K/uL (4.8-10.8)
[2020-05-11 04:58] LABS: CREATININE 1.3 mg/dL (0.5-1.5); MAGNESIUM 2.7 mg/dL (1.80-2.40); PHOSPHORUS 5.2 mg/dL (2.5-4.9); POTASSIUM 4.1 mmol/L (3.5-5.1)
[2020-05-11] MEDS: METHYLPREDNISOLONE SOD SUCC 125MG/2ML VIAL IVP SCH ×3 (06:03→21:25)
[2020-05-11] MEDS: INSULIN LISPRO 100 UNIT/ML 3ML SQ SCH ×6 (07:30→20:10)
[2020-05-11 08:00] VITALS: BP 136/62
[2020-05-11] MEDS: FAMOTIDINE/PF 20 MG/2 ML VIAL IV SCH (09:13)
[2020-05-11] MEDS: TACROLIMUS 0.5 MG CAPSULE PO SCH ×2 (09:13→21:27)
[2020-05-11] MEDS: ASCORBIC ACID 500 MG TAB PO SCH (09:13)
[2020-05-11] MEDS: LISINOPRIL 10 MG TABLET PO SCH ×2 (09:13→21:27)
[2020-05-11] MEDS: AMLODIPINE BESYLATE 5 MG TAB PO SCH (09:13)
[2020-05-11] MEDS: METOPROLOL TARTRATE 25 MG TAB PO SCH ×2 (09:13→21:26)
[2020-05-11] MEDS: ENOXAPARIN SODIUM 30 MG/0.3 ML SQ SCH ×2 (09:14→21:28)
[2020-05-11] MEDS: DEXTROSE 5%-WATER 1,000 ML IV SCH ×2 (10:17→19:43)
[2020-05-11 12:15] VITALS: BP 137/79
--- NOTE | 2020-05-11 14:12 | NUR ---
FOLLOW UP COMPLETED. Pt FOLLOWING COMMANDS TODAY. Pt REQUIRES ASSISTANCE DURING P.O. Pt CURRENTLY ON REGULAR TEXTURE, THIN LIQUIDS; PILLS CRUSHED WITH APPLESAUCE. NO OVERT S/S OF ASPIRATION REPORTED AT THIS TIME. RECOMMEND CONTINUED P.O. TOLERATED BY Pt. RECOMMENDATIONS ARE FOR OK FOR CURRENT RESPIRATORY STATUS. PLEASE RE-CONSULT WATER SAFETY INSTRUCTOR IF CURRENT STATUS DECLINES. Addendum: 05/11/20 at 1420 by SERENA IQBAL [facility] Amended: Links added.
[2020-05-11 16:25] VITALS: BP 111/53
[2020-05-11 19:30] VITALS: BP 119/46
[2020-05-11] MEDS: INSULIN GLARGINE 100 UNITS/ML 10 ML VIAL SQ SCH (21:00)
[2020-05-12] VITALS: BP 122/70
[2020-05-12 04:23] VITALS: BP 108/56
[2020-05-12] MEDS: METHYLPREDNISOLONE SOD SUCC 125MG/2ML VIAL IVP SCH ×3 (04:48→21:26)
[2020-05-12] MEDS: DEXTROSE 5%-WATER 1,000 ML IV SCH (04:48)
[2020-05-12 05:44] LABS: BASOPHILS % (AUTO) 0.1 % (0.0-5.0); HEMATOCRIT 44.1 % (42-54); LYMPHOCYTES % (AUTO) 4.1 % (21.0-51.0); MEAN CORPUSCULAR HEMOGLOBIN 27.8 pg (27.0-33.0); MEAN CORPUSCULAR HGB CONC 32.9 g/dL (32.0-36.0); MEAN CORPUSCULAR VOLUME 84.5 fL (79-99); MONOCYTES % (AUTO) 5.3 % (3.0-13.0); NEUTROPHILS % (AUTO) 89.7 % (40.0-77.0); PLATELET COUNT (AUTO) 198 K/uL (130-400); RED BLOOD CELL COUNT(AUTO) 5.22 MIL/uL (4.50-6.20); RED CELL DISTRIBUTION WIDTH 13.4 % (11.0-15.5); WHITE BLOOD COUNT (AUTO) 23.1 K/uL (4.8-10.8)
[2020-05-12 06:10] LABS: CREATININE 1.5 mg/dL (0.5-1.5); CRP QUANTITATIVE 53.4 mg/L (0.00-9.0); POTASSIUM 4.2 mmol/L (3.5-5.1)
[2020-05-12] MEDS: INSULIN LISPRO 100 UNIT/ML 3ML SQ SCH ×7 (06:34→21:00)
[2020-05-12 08:13] VITALS: BP 114/56
[2020-05-12] MEDS ORDERED: FUROSEMIDE 10 MG/ML 2ML VIAL IV SCH (09:00)
--- NOTE | 2020-05-12 09:00 | NUR ---
ASSESSMENT ENCOUNTERED PT IN HIGH DAVIS'S POSITION, A&OX3 BUT FORGETFUL, FLAT AFFECT, WITH NRB, C/O INTERMITTENT COUGH BUT DENIES PAIN, DIZZINESS. PT IS UNABLE TO LAY FLAT AND DID BECOME TACHYPNEIC WITH O2SATS DECREASING TO 70% WITH NRB 15L @100% FIO2, AND WAS QUICKLY RETURNED TO HIGH DAVIS'S POSITION, PT STATED IN TRINIDADIAN "I NEED AIR!", INFORMED HIM TO TAKE DEEP BREATHS AND ATTEMPT TO RELAX. O2SATS GRADUALLY RETURNED TO 91% OVER 5 MINUTES, PT IS ABLE TO UNDERSTAND THAT HE CANNOT USE CONTROLS TO LAY FLAT. BED CONTOLS LOCKED, CALL LIGHT WITHIN REACH.
[2020-05-12] MEDS: TACROLIMUS 0.5 MG CAPSULE PO SCH ×2 (10:08→21:23)
[2020-05-12] MEDS: LISINOPRIL 10 MG TABLET PO SCH ×2 (10:09→21:22)
[2020-05-12] MEDS: ASCORBIC ACID 500 MG TAB PO SCH (10:09)
[2020-05-12] MEDS: FAMOTIDINE/PF 20 MG/2 ML VIAL IV SCH (10:09)
[2020-05-12] MEDS: METOPROLOL TARTRATE 25 MG TAB PO SCH ×2 (10:09→21:22)
[2020-05-12] MEDS: AMLODIPINE BESYLATE 5 MG TAB PO SCH (10:09)
[2020-05-12] MEDS: ENOXAPARIN SODIUM 30 MG/0.3 ML SQ SCH ×2 (10:10→21:24)
[2020-05-12 10:26] LABS: ABG HCO3 21.5 mmol/L (21.0-28.0); ABG OXYGEN SATURATION 93.9 % (95.0-99.0); ABG PCO2 37 mmHg (35-48)
--- NOTE | 2020-05-12 12:01 | NUR ---
PHONE CALL Patient's , Alberta Roa updated and given opportunity to ask questions.
[2020-05-12 12:21] VITALS: BP 111/56
--- NOTE | 2020-05-12 13:59 | NUR ---
FOLLOW UP COMPLETED. Pt CURRENTLY ON CLEAR LIQUID DIET. NURSE IRA REPORTS Pt WITH DESATURATION WHEN REMOVING NON-REBREATHER TO EAT. DIET CHANGE WAS COMPLETED DUE TO HIGH RISK FOR ASPIRATION WITH SOLIDS. RECOMMEND CONTINUED DIET. ENGINEERING TECHNICIAN WILL CONTINUE TO FOLLOW Pt. Addendum: 05/12/20 at 1403 by SERENA IQBAL, [facility] ST Amended: Links added.
[2020-05-12 16:29] VITALS: BP 127/66
--- NOTE | 2020-05-12 17:00 | NUR ---
UNABLE TO LAY FLAT PT HAD ANOTHER EPISODE OF DESATURATION WHILE CHANGING DIAPER, O2SAT DECREASED TO 70% AND SLOWLY RETURNED TO 92% AFTER 7 MINUTES IN HIGH DAVIS'S POSITION. BED CONTROLS LOCKED, CALL LIGHT WITHIN REACH.
[2020-05-12 19:39] VITALS: BP 110/49
[2020-05-12] MEDS: INSULIN GLARGINE 100 UNITS/ML 10 ML VIAL SQ SCH (21:00)
[2020-05-12] MEDS: DEXTROSE 50%-WATER 50 ML DISP.SYRIN IV PRN (21:26)
[2020-05-13] VITALS (7 sets, daily range): BP systolic 102–142; BP diastolic 56–70
[2020-05-13 05:52] LABS: BASOPHILS % (AUTO) 0.1 % (0.0-5.0); HEMATOCRIT 46.2 % (42-54); LYMPHOCYTES % (AUTO) 2.9 % (21.0-51.0); MEAN CORPUSCULAR HEMOGLOBIN 27.8 pg (27.0-33.0); MEAN CORPUSCULAR HGB CONC 32.5 g/dL (32.0-36.0); MEAN CORPUSCULAR VOLUME 85.6 fL (79-99); NEUTROPHILS % (AUTO) 92.4 % (40.0-77.0); PLATELET COUNT (AUTO) 189 K/uL (130-400); RED CELL DISTRIBUTION WIDTH 13.5 % (11.0-15.5); WHITE BLOOD COUNT (AUTO) 19.6 K/uL (4.8-10.8)
[2020-05-13] MEDS: METHYLPREDNISOLONE SOD SUCC 125MG/2ML VIAL IVP SCH ×2 (05:52→17:38)
[2020-05-13] MEDS: INSULIN LISPRO 100 UNIT/ML 3ML SQ SCH ×7 (06:51→21:00)
[2020-05-13 08:11] LABS: CRP QUANTITATIVE 30.7 mg/L (0.00-9.0); POTASSIUM 4.8 mmol/L (3.5-5.1)
[2020-05-13 08:12] LABS: CREATININE 1.6 mg/dL (0.5-1.5)
[2020-05-13] MEDS: LISINOPRIL 10 MG TABLET PO SCH ×2 (09:00→20:54)
[2020-05-13] MEDS: ENOXAPARIN SODIUM 30 MG/0.3 ML SQ SCH ×2 (09:57→20:54)
[2020-05-13] MEDS: TACROLIMUS 0.5 MG CAPSULE PO SCH ×2 (09:58→20:55)
[2020-05-13] MEDS: ASCORBIC ACID 500 MG TAB PO SCH (09:58)
[2020-05-13] MEDS: METOPROLOL TARTRATE 25 MG TAB PO SCH ×2 (09:58→20:54)
[2020-05-13] MEDS: AMLODIPINE BESYLATE 5 MG TAB PO SCH (09:59)
[2020-05-13] MEDS: FAMOTIDINE/PF 20 MG/2 ML VIAL IV SCH (09:59)
[2020-05-13] MEDS: MYCOPHENOLATE MOFETIL 250 MG CAPSULE PO SCH ×2 (18:28)
--- NOTE | 2020-05-13 18:39 | NUR ---
[address] DE LUNA REGARDING LAB RESULTS AND FAMILY MED COMMUNICATION REGARDING CELL CEPT. PER [place] TO ORDER ONCE DOSE IS VERIFIED BY FAMILY. ATTEMPTED TO CALL PHONE NUMBER LISTED, UNABLE TO GET THROUGH. SPOKE WITH PHARMACY, MEDICATION IS IN STOCK WILL ENTER ORDER ONCE DOSE IS VERIFIED.
--- NOTE | 2020-05-13 18:41 | NUR ---
1800 THIS NURSE NOTIFIED THAT PT DESATURATED TO THE 60S ON 6L OF OXYGEN VIA NASAL CANULA AND 15L ON NON-REBREATHER. NURSING IMPLEMENTED INTERVENTIONS NEEDED AND PT STABILIZED AT 86-88%. 1830 PT GIVEN EVENING MEDICATION, OPENED CAPSULES AND MIXED WITH JELLO. PT SPO2 BEGAN TO DROP AGAIN INTO THE 70S, TURNED PT TO T WITH ASSIST OF STAFF NURSE AND PT'S SPO2 UP 88-91%
--- NOTE | 2020-05-13 18:55 | NUR ---
NURSE NOTED SKINS TEARS ON PT'S BILATERAL EARS, PLACED CLEAN GAUZE WILL PLACE WOUND CARE CONSULT.
[2020-05-13] MEDS: INSULIN GLARGINE 100 UNITS/ML 10 ML VIAL SQ SCH (21:00)
[2020-05-14 03:00] VITALS: BP 145/87
[2020-05-14 04:33] LABS: BASOPHILS % (AUTO) 0.1 % (0.0-5.0); HEMATOCRIT 47.2 % (42-54); LYMPHOCYTES % (AUTO) 2.3 % (21.0-51.0); MEAN CORPUSCULAR HEMOGLOBIN 27.9 pg (27.0-33.0); MEAN CORPUSCULAR HGB CONC 32.6 g/dL (32.0-36.0); MEAN CORPUSCULAR VOLUME 85.5 fL (79-99); NEUTROPHILS % (AUTO) 89.1 % (40.0-77.0); PLATELET COUNT (AUTO) 161 K/uL (130-400); RED BLOOD CELL COUNT(AUTO) 5.52 MIL/uL (4.50-6.20); RED CELL DISTRIBUTION WIDTH 13.5 % (11.0-15.5); WHITE BLOOD COUNT (AUTO) 19.2 K/uL (4.8-10.8)
[2020-05-14 04:49] LABS: CRP QUANTITATIVE 27.8 mg/L (0.00-9.0)
[2020-05-14] MEDS: METHYLPREDNISOLONE SOD SUCC 125MG/2ML VIAL IVP SCH ×2 (05:21→18:54)
[2020-05-14] MEDS: INSULIN LISPRO 100 UNIT/ML 3ML SQ SCH ×6 (05:37→21:37)
[2020-05-14] MEDS: MYCOPHENOLATE MOFETIL 250 MG CAPSULE PO SCH ×4 (06:09→18:55)
[2020-05-14 08:00] VITALS: BP 135/67
[2020-05-14 08:26] LABS: ALBUMIN 1.9 g/dL (3.5-5.0); BILIRUBIN,TOTAL 0.6 mg/dL (0.2-1.0); CREATININE 1.5 mg/dL (0.5-1.5); POTASSIUM 4.6 mmol/L (3.5-5.1)
[2020-05-14] MEDS: AMLODIPINE BESYLATE 5 MG TAB PO SCH (10:45)
[2020-05-14] MEDS: METOPROLOL TARTRATE 25 MG TAB PO SCH ×2 (10:45→21:38)
[2020-05-14] MEDS: ASCORBIC ACID 500 MG TAB PO SCH (10:45)
[2020-05-14] MEDS: TACROLIMUS 0.5 MG CAPSULE PO SCH ×2 (10:46→21:39)
[2020-05-14] MEDS: FAMOTIDINE/PF 20 MG/2 ML VIAL IV SCH (10:47)
[2020-05-14] MEDS: ENOXAPARIN SODIUM 30 MG/0.3 ML SQ SCH ×2 (10:48→21:38)
[2020-05-14] MEDS: LISINOPRIL 10 MG TABLET PO SCH ×2 (10:52→21:38)
[2020-05-14 12:00] VITALS: BP 119/56
[2020-05-14 16:00] VITALS: BP 126/70
[2020-05-14 19:00] VITALS: BP 129/59
[2020-05-14] MEDS: INSULIN GLARGINE 100 UNITS/ML 10 ML VIAL SQ SCH (21:36)
[2020-05-14 23:00] VITALS: BP 138/61
[2020-05-15 03:00] VITALS: BP 128/63
[2020-05-15] MEDS: INSULIN LISPRO 100 UNIT/ML 3ML SQ SCH ×6 (05:51→21:00)
[2020-05-15] MEDS: METHYLPREDNISOLONE SOD SUCC 125MG/2ML VIAL IVP SCH (05:53)
[2020-05-15] MEDS: MYCOPHENOLATE MOFETIL 250 MG CAPSULE PO SCH ×4 (05:53→17:27)
[2020-05-15 06:04] LABS: BASOPHILS % (AUTO) 0.1 % (0.0-5.0); EOSINOPHILS % (AUTO) 0.1 % (0.0-8.0); HEMATOCRIT 47.9 % (42-54); LYMPHOCYTES % (AUTO) 4.8 % (21.0-51.0); MEAN CORPUSCULAR HEMOGLOBIN 27.5 pg (27.0-33.0); MEAN CORPUSCULAR HGB CONC 31.9 g/dL (32.0-36.0); MEAN CORPUSCULAR VOLUME 86.2 fL (79-99); MONOCYTES % (AUTO) 9.9 % (3.0-13.0); NEUTROPHILS % (AUTO) 84.5 % (40.0-77.0); PLATELET COUNT (AUTO) 172 K/uL (130-400); RED BLOOD CELL COUNT(AUTO) 5.56 MIL/uL (4.50-6.20); RED CELL DISTRIBUTION WIDTH 13.6 % (11.0-15.5); WHITE BLOOD COUNT (AUTO) 17.3 K/uL (4.8-10.8)
[2020-05-15 06:28] LABS: ALBUMIN 1.9 g/dL (3.5-5.0); BILIRUBIN,TOTAL 0.7 mg/dL (0.2-1.0); CREATININE 1.6 mg/dL (0.5-1.5); CRP QUANTITATIVE 24.7 mg/L (0.00-9.0); POTASSIUM 5.1 mmol/L (3.5-5.1); TOTAL PROTEIN, SERUM 6.2 g/dL (6.0-8.3)
[2020-05-15 06:49] LABS: B-TYPE NATRIURETIC PEPTIDE 81 pg/mL (0-100)
[2020-05-15 07:30] VITALS: BP 123/58
[2020-05-15] MEDS: ASCORBIC ACID 500 MG TAB PO SCH (09:44)
[2020-05-15] MEDS: AMLODIPINE BESYLATE 5 MG TAB PO SCH (09:47)
[2020-05-15] MEDS: METOPROLOL TARTRATE 25 MG TAB PO SCH ×2 (09:47→20:58)
[2020-05-15] MEDS: LISINOPRIL 10 MG TABLET PO SCH ×2 (09:47→20:58)
[2020-05-15] MEDS: TACROLIMUS 0.5 MG CAPSULE PO SCH ×2 (09:47→20:58)
[2020-05-15] MEDS: ENOXAPARIN SODIUM 30 MG/0.3 ML SQ SCH ×2 (09:48→20:58)
[2020-05-15] MEDS: FAMOTIDINE/PF 20 MG/2 ML VIAL IV SCH (09:48)
[2020-05-15 11:30] VITALS: BP 121/29
--- NOTE | 2020-05-15 14:46 | NUR ---
FAMILY UPDATED ON PATIENT STATUS CALLED TO GET UPDATE ON HER STATUS , ANSWERS HER QUESTIONS ON MEDICATION , VS, AND PLAN OF CARE.
[2020-05-15 15:30] VITALS: BP 112/67
--- NOTE | 2020-05-15 17:45 | NUR ---
PHYSICIAN ROUNDS GIL CORDERO ORDER RECEIVED D/C [facility], D/C SCHEDULE INSULIN ( PATIENT TO BE COVER SLIDING SCALE, AND TO CHANGE PATIENT TO HIGH FLOW, ORDERS PLACED AND RESPIRATORY COMMUNICATION SENT.
--- NOTE | 2020-05-15 18:00 | NUR ---
PHYSICIAN ROUNDS DR DAWSON TELE VIDEO DR DAWSON ROUNDED UPDATE ON PATIENT STATUS , NO NEW ORDERS RECEIVED
[2020-05-15 19:00] VITALS: BP 110/57
[2020-05-15] MEDS: INSULIN GLARGINE 100 UNITS/ML 10 ML VIAL SQ SCH (20:59)
[2020-05-15 23:00] VITALS: BP 106/47
[2020-05-16 03:00] VITALS: BP 146/81
[2020-05-16] MEDS: INSULIN LISPRO 100 UNIT/ML 3ML SQ SCH ×4 (05:23→21:00)
[2020-05-16 05:27] LABS: BASOPHILS % (AUTO) 0.1 % (0.0-5.0); EOSINOPHILS % (AUTO) 0.1 % (0.0-8.0); HEMATOCRIT 44.4 % (42-54); LYMPHOCYTES % (AUTO) 4.3 % (21.0-51.0); MEAN CORPUSCULAR HEMOGLOBIN 27.4 pg (27.0-33.0); MEAN CORPUSCULAR HGB CONC 32.4 g/dL (32.0-36.0); MEAN CORPUSCULAR VOLUME 84.6 fL (79-99); MONOCYTES % (AUTO) 8.6 % (3.0-13.0); PLATELET COUNT (AUTO) 140 K/uL (130-400); RED BLOOD CELL COUNT(AUTO) 5.25 MIL/uL (4.50-6.20); RED CELL DISTRIBUTION WIDTH 13.6 % (11.0-15.5); WHITE BLOOD COUNT (AUTO) 19.1 K/uL (4.8-10.8)
[2020-05-16] MEDS: MYCOPHENOLATE MOFETIL 250 MG CAPSULE PO SCH ×4 (06:01→17:53)
[2020-05-16] MEDS: DEXTROSE 50%-WATER 50 ML DISP.SYRIN IV PRN (06:04)
[2020-05-16 07:30] VITALS: BP 131/72
[2020-05-16] MEDS: AMLODIPINE BESYLATE 5 MG TAB PO SCH (09:07)
[2020-05-16] MEDS: METOPROLOL TARTRATE 25 MG TAB PO SCH ×2 (09:07→22:05)
[2020-05-16] MEDS: LISINOPRIL 10 MG TABLET PO SCH ×2 (09:07→22:05)
[2020-05-16] MEDS: FAMOTIDINE/PF 20 MG/2 ML VIAL IV SCH (09:07)
[2020-05-16] MEDS: TACROLIMUS 0.5 MG CAPSULE PO SCH ×2 (09:10→22:05)
[2020-05-16] MEDS: ASCORBIC ACID 500 MG TAB PO SCH (09:18)
[2020-05-16] MEDS: ENOXAPARIN SODIUM 30 MG/0.3 ML SQ SCH ×2 (09:18→22:06)
[2020-05-16 09:47] LABS: CREATININE 1.3 mg/dL (0.5-1.5); CRP QUANTITATIVE 43.2 mg/L (0.00-9.0); POTASSIUM 4.4 mmol/L (3.5-5.1)
[2020-05-16 11:30] VITALS: BP 110/58
--- NOTE | 2020-05-16 15:24 | NUR ---
PHYSICIAN ROUNDS DR MARY HERNANDEZ ROUNDED ON PATIENT ORDERS RECEIVED FOR CBC, CMP AND CHEST XRAY IN AM. HYDROXYZINE ORDERED EVERY 6 HOUR FOR ANXIETY ( DO NOT WAKE PATIENT IF SLEEPING )
[2020-05-16 15:30] VITALS: BP 122/68
[2020-05-16] MEDS ORDERED: HYDROXYZINE HCL 10 MG TABLET ONE (15:57)
[2020-05-16] MEDS: HYDROXYZINE HCL 10 MG TABLET PO SCH ×2 (16:09→22:10)
[2020-05-16 20:00] VITALS: BP 124/75
[2020-05-17 04:00] VITALS: BP 129/69
[2020-05-17 04:46] LABS: BASOPHILS % (AUTO) 0.2 % (0.0-5.0); HEMATOCRIT 40.9 % (42-54); LYMPHOCYTES % (AUTO) 10.3 % (21.0-51.0); MEAN CORPUSCULAR HEMOGLOBIN 29.7 pg (27.0-33.0); MEAN CORPUSCULAR HGB CONC 34.5 g/dL (32.0-36.0); MEAN CORPUSCULAR VOLUME 86.3 fL (79-99); MONOCYTES % (AUTO) 1.8 % (3.0-13.0); PLATELET COUNT (AUTO) 317 K/uL (130-400); RED BLOOD CELL COUNT(AUTO) 4.74 MIL/uL (4.50-6.20); RED CELL DISTRIBUTION WIDTH 12.9 % (11.0-15.5); WHITE BLOOD COUNT (AUTO) 17.5 K/uL (4.8-10.8)
[2020-05-17 05:17] LABS: ALBUMIN 2.1 g/dL (3.5-5.0); BILIRUBIN,TOTAL 0.7 mg/dL (0.2-1.0); CREATININE 0.8 mg/dL (0.5-1.5); CRP QUANTITATIVE 145.2 mg/L (0.00-9.0); POTASSIUM 3.8 mmol/L (3.5-5.1); TOTAL PROTEIN, SERUM 6.6 g/dL (6.0-8.3)
[2020-05-17] MEDS: HYDROXYZINE HCL 10 MG TABLET PO SCH ×4 (05:30→21:00)
[2020-05-17 05:52] LABS: B-TYPE NATRIURETIC PEPTIDE 60 pg/mL (0-100)
[2020-05-17] MEDS: DEXTROSE 50%-WATER 50 ML DISP.SYRIN IV PRN (05:56)
[2020-05-17 07:30] VITALS: BP 135/75
[2020-05-17] MEDS: INSULIN LISPRO 100 UNIT/ML 3ML SQ SCH ×4 (07:30→20:55)
[2020-05-17] MEDS: LISINOPRIL 10 MG TABLET PO SCH ×2 (09:00→21:00)
[2020-05-17] MEDS: AMLODIPINE BESYLATE 5 MG TAB PO SCH (09:00)
[2020-05-17] MEDS: ASCORBIC ACID 500 MG TAB PO SCH (10:15)
[2020-05-17] MEDS: METOPROLOL TARTRATE 25 MG TAB PO SCH ×2 (10:15→21:01)
[2020-05-17] MEDS: FAMOTIDINE/PF 20 MG/2 ML VIAL IV SCH (10:15)
[2020-05-17] MEDS: MYCOPHENOLATE MOFETIL 250 MG CAPSULE PO SCH ×4 (10:15→21:01)
[2020-05-17] MEDS: TACROLIMUS 0.5 MG CAPSULE PO SCH ×2 (10:15→21:00)
[2020-05-17] MEDS: ENOXAPARIN SODIUM 30 MG/0.3 ML SQ SCH ×2 (10:15→20:54)
[2020-05-17 11:30] VITALS: BP 131/77
[2020-05-17] MEDS: DEXAMETHASONE 4 MG TAB PO SCH (13:32)
[2020-05-17 15:30] VITALS: BP 131/73
[2020-05-17] MEDS ORDERED: PHARMACY COMMUNICATION MISC SCH ×2 (16:45→17:00)
--- NOTE | 2020-05-17 18:00 | NUR ---
MEDICATION ATARAX HELD, PT DROWSY, NO DISTRESS AT THIS TIME, O2 SAT 97-99%. CALL LIGHT WITHIN REACH
--- NOTE | 2020-05-17 18:30 | NUR ---
NGT PT AWAKE AND ALERT, REFUSED NGT TUBE PLACEMENT AT THIS TIME. MADE AWARE PURPOSE OF NGT, STATES TO PLACE AT A LATER TIME.
[2020-05-17 21:52] VITALS: BP 114/53
[2020-05-17] MEDS: LABETALOL 20 MG/4 ML DISP.SYRIN IV PRN (23:40)
[2020-05-18] VITALS (40 sets, daily range): BP systolic 68–151; BP diastolic 31–90
--- NOTE | 2020-05-18 04:59 | NUR ---
PT IS AWAKE. SEEMS TO BE VERY CONFUSED. PT CONTINUES TO DESAT WITH ANY TYPE OF MOVEMENT OR ACTIVITY. PT IS UNABLE TO TAKE HIS PO MEDICATIONS DUE TO SEVERE COUGHING AND THE NECESSITY OF NRB MASK. PT CONTINUOUSLY REMOVES NRB MASK DURING THE NIGHT, AND HIS SATS DROP RAPIDLY, I LEFT THE ROOM AND CAME BACK 2 MIN LATER TO FIND PATIENT PALE AND SATURATING AT 30%. RESPIRATORY HAS BEEN MADE AWARE. PT IS APPARENTLY WAITING FOR A BIPAP OR HFNC. PT IS UNABLE TO HAVE THE NG TUBE PLACED HE CANNOT BE OFF THE NRB. THE PT IS ON NRB AT 15L WELL NC AT 15 L. PT IS ON MEDICATION TO HELP WITH ANXIETY AND WHEN IT TAKES EFFECT, THE PATIENT IS ASLEEP AND SATURATING AT 90% AND UP. PT IS AT RISK FOR ASPIRATION AND I HAVE BEEN FOLLOWING ASPIRATION PRECAUTIONS THROUGHOUT THE SHIFT. A CALL WILL BE PLACED TO THE DOCTOR AND PATIENTS FAMILY TO INQUIRE ABOUT CODE STATUS AND TREATMENT PLAN. PT WOULD BENEFIT FROM 1:1 CARE. AT THE MOMENT THE PT IS SLEEPING WITH O2 SAT AT 97%. WILL CONTINUE TO MONITOR.
[2020-05-18 05:15] LABS: BASOPHILS % (AUTO) 0.1 % (0.0-5.0); EOSINOPHILS % (AUTO) 0.1 % (0.0-8.0); HEMATOCRIT 43.4 % (42-54); LYMPHOCYTES % (AUTO) 3.3 % (21.0-51.0); MEAN CORPUSCULAR HGB CONC 32.5 g/dL (32.0-36.0); MEAN CORPUSCULAR VOLUME 86.3 fL (79-99); MONOCYTES % (AUTO) 4.1 % (3.0-13.0); NEUTROPHILS % (AUTO) 91.7 % (40.0-77.0); PLATELET COUNT (AUTO) 142 K/uL (130-400); RED BLOOD CELL COUNT(AUTO) 5.03 MIL/uL (4.50-6.20); RED CELL DISTRIBUTION WIDTH 14.4 % (11.0-15.5)
[2020-05-18 05:21] LABS: CREATININE 1.4 mg/dL (0.5-1.5); CRP QUANTITATIVE 164.4 mg/L (0.00-9.0); POTASSIUM 5.5 mmol/L (3.5-5.1)
[2020-05-18] MEDS: HYDROXYZINE HCL 10 MG TABLET PO SCH (06:00)
[2020-05-18] MEDS: MYCOPHENOLATE MOFETIL 250 MG CAPSULE PO SCH ×4 (07:00→19:00)
[2020-05-18] MEDS: INSULIN LISPRO 100 UNIT/ML 3ML SQ SCH ×2 (07:30→21:00)
[2020-05-18] MEDS ORDERED: FENTANYL CITRATE PF 0.05 MG/ML 1,000 MCG in SODIUM CHLORIDE 0.9% 100 ML IVPB SCH (08:30)
[2020-05-18] MEDS ORDERED: SODIUM CHLORIDE 0.9% 1000ML 1,000 ML IV SCH (08:30)
[2020-05-18] MEDS ORDERED: NOREPINEPHRINE 4MG/NS 250ML 250 ML IV SCH (08:30)
[2020-05-18] MEDS ORDERED: MIDAZOLAM 50MG-0.9% NS 50ML 50 ML BAG IV SCH (08:30)
--- NOTE | 2020-05-18 08:30 | NUR ---
PT AWAKE IN BED IN NO APPARENT DISTRESS AT SHIFT CHANGE. CONFUSION NOTED. LEGALLY BLIND PER REPORT. O2 VIA NRB AT 100% AND NASAL CANNULA AT 6L. AWAITING HIGH FLOW NASAL CANNULA DUE TO SEVERAL EPISODES OF DESATTING DURING THE NIGHT. PT DESATTED IN THE 40's, RESPIRATORY DISTRESS NOTED, BRADYPNEA. CODE BLUE CALLED. SEE CODE NOTES.
[2020-05-18] MEDS ORDERED: FENTANYL 2500MCG+NS 250ML 250 ML IV ONE (08:43)
[2020-05-18] MEDS ORDERED: FENTANYL 2500MCG+NS 250ML 250 ML IV PRN (09:45)
--- NOTE | 2020-05-18 10:02 | NUR ---
RD FOLLOW UP RD notification for Tube Feeding recommendations. NGT placement. Recommend Vital AF 1.2 initiated at 15mls/hr, goal of 45mls/hr as tolerated. Recommend 100ml Q6hrs. Recommendations faxed to Tierney RN notified. NUTRITION NOTE: Pt with increased protein needs d/t increased work of breathing. WBC 29.0, K 5.5, Alb 2.1, LDH 676. Recommend immune support, high protein vital AF 1.2 tube feeding formula. Vitamin C in place. RD to continue to monitor. Please notify as additional nutrition concerns arise. Thank you.
[2020-05-18 12:11] LABS: INR 1.16 (0.85-1.15); PROTHROMBIN TIME 12.5 SEC (9.6-11.6)
--- NOTE | 2020-05-18 14:48 | NUR ---
FOLLOW UP Pt IS S/P CODE, REQUIRING INTUBATION AND CURRENTLY ON TUBE FEEDING. RECOMMEND RE-EVALUATION 24 HOURS S/P EXTUBATION. MUSIC GRAPHER WILL FOLLOW UP WITH Pt. Addendum: 05/18/20 at 1450 by SERENA IQBAL, [facility] ST Amended: Links added.
[2020-05-18] MEDS: LISINOPRIL 10 MG TABLET PO SCH (21:00)
[2020-05-18] MEDS: METOPROLOL TARTRATE 25 MG TAB PO SCH (21:00)
[2020-05-18] MEDS: TACROLIMUS 0.5 MG CAPSULE PO SCH (22:06)
[2020-05-18] MEDS: ENOXAPARIN SODIUM 30 MG/0.3 ML SQ SCH (22:08)
[2020-05-18] MEDS: NOREPINEPHRINE BITARTRATE 32 MG in SODIUM CHLORIDE 0.9% 250 ML IV SCH (22:50)
[2020-05-18] MEDS ORDERED: SODIUM CHLORIDE 0.9% 250 ML IV ONE (22:52)
[2020-05-18] MEDS ORDERED: RENAL DOSE IV SCH (23:00)
[2020-05-19] VITALS (28 sets, daily range): BP systolic 86–121; BP diastolic 25–57
[2020-05-19] MEDS: MEROPENEM 1 GM VIAL IVP SCH ×2 (00:28→12:05)
[2020-05-19] MEDS: HYDROCORTISONE SOD SUCCINATE 100 MG/2 ML VIAL IV SCH ×3 (00:29→16:00)
[2020-05-19] MEDS: HYDROXYZINE HCL 10 MG TABLET PO SCH ×4 (05:34→18:00)
[2020-05-19 06:37] LABS: BASOPHILS % (AUTO) 0.2 % (0.0-5.0); HEMATOCRIT 40.5 % (42-54); LYMPHOCYTES % (AUTO) 2.3 % (21.0-51.0); MEAN CORPUSCULAR HEMOGLOBIN 27.6 pg (27.0-33.0); MEAN CORPUSCULAR HGB CONC 30.6 g/dL (32.0-36.0); MEAN CORPUSCULAR VOLUME 90.2 fL (79-99); MONOCYTES % (AUTO) 4.4 % (3.0-13.0); NEUTROPHILS % (AUTO) 91.4 % (40.0-77.0); PLATELET COUNT (AUTO) 95 K/uL (130-400); RED BLOOD CELL COUNT(AUTO) 4.49 MIL/uL (4.50-6.20)
[2020-05-19] MEDS: INSULIN LISPRO 100 UNIT/ML 3ML SQ SCH ×4 (06:41→21:00)
[2020-05-19 06:49] LABS: WHITE BLOOD COUNT (AUTO) 32.4 K/uL (4.8-10.8)
[2020-05-19 06:59] LABS: POTASSIUM 6.3 mmol/L (3.5-5.1)
[2020-05-19 07:00] LABS: CRP QUANTITATIVE 255.6 mg/L (0.00-9.0)
[2020-05-19] MEDS ORDERED: INSULIN REGULAR, HUMAN 3ML 100 UNIT in SODIUM CHLORIDE 0.9% 99 ML IV PRN ×2 (07:45)
[2020-05-19] MEDS: DEXTROSE 50%-WATER 25 GM/50 ML VIAL IV SCH (07:45)
[2020-05-19] MEDS ORDERED: LACTULOSE 20 GM/30 ML UDCUP PO SCH (07:45)
[2020-05-19] MEDS ORDERED: SODIUM BICARB 50MEQ 50ML VIAL IV SCH (07:45)
[2020-05-19] MEDS ORDERED: CALCIUM GLUCONATE 1 GM/10 ML VIAL IV SCH (07:45)
[2020-05-19 08:37] LABS: EOSINOPHILS % (MANUAL) 1 % (1-6); LYMPHOCYTES % (MANUAL) 2 % (22-44); MAN.DIFF COMMENT-IMPRESSION MANUAL DIFFERENTIAL; MONOCYTES % (MANUAL) 3 % (2-9); PLATELET MORPHOLOGY COMMENT DECREASED; SEGMENTED NEUTROPHILS % 94 % (40-70)
[2020-05-19] MEDS ORDERED: METOPROLOL TARTRATE 25 MG TAB PO SCH (09:00)
[2020-05-19] MEDS: FAMOTIDINE/PF 20 MG/2 ML VIAL IV SCH ×2 (09:44→09:54)
[2020-05-19] MEDS: TACROLIMUS 0.5 MG CAPSULE PO SCH ×2 (09:45→21:00)
[2020-05-19] MEDS: CALCIUM GLUCONATE 1 GM in SODIUM CHLORIDE 0.9% 100 ML IV SCH (09:45)
[2020-05-19] MEDS: DEXTROSE 50%-WATER 50 ML DISP.SYRIN IV PRN ×3 (09:46→11:57)
[2020-05-19] MEDS: DEXAMETHASONE 4 MG TAB PO SCH ×2 (09:49→09:55)
[2020-05-19] MEDS: MYCOPHENOLATE MOFETIL 250 MG CAPSULE PO SCH ×4 (09:50→18:44)
[2020-05-19] MEDS: ASCORBIC ACID 500 MG TAB PO SCH ×2 (09:50→09:56)
[2020-05-19] MEDS: ENOXAPARIN SODIUM 30 MG/0.3 ML SQ SCH ×2 (09:52→21:00)
[2020-05-19] MEDS: SODIUM POLYSTYRENE SULFONATE 15 GM/60 ML ML PO SCH (09:53)
[2020-05-19 11:57] LABS: CREATININE 2.2 mg/dL (0.5-1.5); POTASSIUM 4.8 mmol/L (3.5-5.1)
[2020-05-20] VITALS (37 sets, daily range): BP systolic 62–120; BP diastolic 14–51
[2020-05-20] MEDS: MEROPENEM 1 GM VIAL IVP SCH (00:14)
[2020-05-20] MEDS: HYDROCORTISONE SOD SUCCINATE 100 MG/2 ML VIAL IV SCH ×3 (00:14→16:00)
[2020-05-20 04:24] LABS: ALBUMIN 1.3 g/dL (3.5-5.0); BILIRUBIN,TOTAL 0.6 mg/dL (0.2-1.0); CREATININE 2.9 mg/dL (0.5-1.5); TOTAL PROTEIN, SERUM 5.6 g/dL (6.0-8.3)
[2020-05-20 04:26] LABS: POTASSIUM 6.4 mmol/L (3.5-5.1)
[2020-05-20] MEDS: HYDROXYZINE HCL 10 MG TABLET PO SCH ×4 (05:33→18:00)
[2020-05-20] MEDS: INSULIN LISPRO 100 UNIT/ML 3ML SQ SCH ×4 (07:30→21:14)
[2020-05-20 07:45] LABS: CRP QUANTITATIVE 241.8 mg/L (0.00-9.0)
[2020-05-20] MEDS: DEXTROSE 50%-WATER 25 GM/50 ML VIAL IV SCH (07:45)
[2020-05-20 08:19] LABS: ABG BASE EXCESS -11.6 mmol/L (-2.0-3.0); ABG OXYGEN SATURATION 97.3 % (95.0-99.0); ABG PCO2 57 mmHg (35-48)
[2020-05-20] MEDS: LABETALOL 20 MG/4 ML DISP.SYRIN IV PRN (09:46)
[2020-05-20] MEDS: ENOXAPARIN SODIUM 30 MG/0.3 ML SQ SCH ×2 (09:47→21:04)
[2020-05-20] MEDS: SODIUM BICARBONATE 650 MG TAB PO SCH ×3 (09:50→21:04)
[2020-05-20] MEDS: ASCORBIC ACID 500 MG TAB PO SCH (09:50)
[2020-05-20] MEDS: DEXAMETHASONE 4 MG TAB PO SCH (09:50)
[2020-05-20] MEDS: TACROLIMUS 0.5 MG CAPSULE PO SCH ×2 (09:51→21:04)
[2020-05-20] MEDS: FAMOTIDINE/PF 20 MG/2 ML VIAL IV SCH (09:51)
[2020-05-20] MEDS: MYCOPHENOLATE MOFETIL 250 MG CAPSULE PO SCH ×4 (09:52→18:17)
[2020-05-20] MEDS: CALCIUM GLUCONATE 1 GM in SODIUM CHLORIDE 0.9% 100 ML IV SCH (10:48)
[2020-05-20] MEDS: SODIUM POLYSTYRENE SULFONATE 15 GM/60 ML ML PO SCH ×2 (10:49→20:00)
[2020-05-20] MEDS: DEXTROSE 50%-WATER 50 ML DISP.SYRIN IV PRN (10:55)
[2020-05-20] MEDS: MEROPENEM 500 MG VIAL IVP SCH (12:22)
[2020-05-20] MEDS ORDERED: ACETAMINOPHEN ELIXIR 650 MG/20.3 ML UDCUP ONE (18:38)
[2020-05-21] VITALS (34 sets, daily range): BP systolic 54–127; BP diastolic 13–38
[2020-05-21] MEDS: HYDROCORTISONE SOD SUCCINATE 100 MG/2 ML VIAL IV SCH ×3 (00:31→15:25)
[2020-05-21] MEDS: MEROPENEM 500 MG VIAL IVP SCH ×2 (00:32→15:48)
[2020-05-21] MEDS ORDERED: INSULIN HUMULIN R 100 UNIT/ML 3ML SQ ONE (01:30)
[2020-05-21] MEDS: HYDROXYZINE HCL 10 MG TABLET PO SCH ×4 (06:00→18:00)
[2020-05-21] MEDS: INSULIN HUMULIN R 100 UNIT/ML 3ML SQ SCH ×3 (06:46→18:00)
[2020-05-21] MEDS: INSULIN LISPRO 100 UNIT/ML 3ML SQ SCH ×4 (07:30→21:00)
[2020-05-21] MEDS: DEXTROSE 50%-WATER 25 GM/50 ML VIAL IV SCH (07:45)
[2020-05-21] MEDS: SODIUM POLYSTYRENE SULFONATE 15 GM/60 ML ML PO SCH (09:45)
[2020-05-21] MEDS: CALCIUM GLUCONATE 1 GM in SODIUM CHLORIDE 0.9% 100 ML IV SCH (10:12)
[2020-05-21] MEDS: ASCORBIC ACID 500 MG TAB PO SCH (10:13)
[2020-05-21] MEDS: TACROLIMUS 0.5 MG CAPSULE PO SCH ×2 (10:13→21:41)
[2020-05-21] MEDS: ENOXAPARIN SODIUM 30 MG/0.3 ML SQ SCH ×2 (10:14→21:41)
[2020-05-21] MEDS: DEXAMETHASONE 4 MG TAB PO SCH (10:24)
[2020-05-21] MEDS: SODIUM BICARBONATE 650 MG TAB PO SCH ×3 (10:24→21:41)
[2020-05-21] MEDS: MYCOPHENOLATE MOFETIL 250 MG CAPSULE PO SCH ×4 (10:26→19:00)
[2020-05-21] MEDS ORDERED: SODIUM POLYSTYRENE SULFONATE 15 GM/60 ML ML NG SCH (14:15)
[2020-05-21] MEDS ORDERED: CALCIUM GLUCONATE 1 GM/10 ML VIAL IV SCH (14:30)
[2020-05-21] MEDS ORDERED: INSULIN HUMULIN R 100 UNIT/ML 3ML IV SCH (14:30)
[2020-05-21] MEDS ORDERED: SODIUM BICARB 50MEQ 50ML VIAL IV SCH (14:30)
[2020-05-21] MEDS ORDERED: CALCIUM GLUCONATE 1 GM/10 ML VIAL IV ONE (14:33)
[2020-05-21] MEDS ORDERED: SODIUM BICARB 50MEQ 50ML VIAL ONE (14:38)
--- NOTE | 2020-05-21 14:45 | NUR ---
HYPERKALEMIA AVERY MANZANARES MADE AWARE BY AIRPLANE PILOT COMMERCIAL WHO RECEIVED CRITICAL RESULT K = 7. HYPERKALMEIA PROTOCOL INITIATED AND COMPLETED. WILL REASSESS KSeamus DAWSON MD MADE AWARE DURING TELEMED AT 2905.
[2020-05-21] MEDS: DEXTROSE 50%-WATER 50 ML DISP.SYRIN IV PRN (14:46)
[2020-05-21] MEDS: FAMOTIDINE/PF 20 MG/2 ML VIAL IV SCH (15:24)
--- NOTE | 2020-05-21 16:08 | NUR ---
AVERY LOVE MD UPDATED AND MADE AWARE OF PT STATUS, ASSESSMENT, LAB RESULTS AND PLAN OF CARE. NO NEW ORDERS AT THIS TIME. PLAN OF CARE DISCUSSED. MAY DISCUSS Addendum: 05/21/20 at 1841 by Gloria Roman RN RN CORRECTION: SAMIR LOVE MAY DISCUSS WDLS WITH FAMILY
[2020-05-21] MEDS: NOREPINEPHRINE BITARTRATE 32 MG in SODIUM CHLORIDE 0.9% 250 ML IV SCH (16:59)
[2020-05-21] MEDS ORDERED: INSULIN GLARGINE 100 UNITS/ML 10 ML VIAL SQ SCH (21:00)
[2020-05-22] VITALS (32 sets, daily range): BP systolic 72–155; BP diastolic 15–38
[2020-05-22] MEDS ORDERED: HYDROCORTISONE SOD SUCCINATE 100 MG/2 ML VIAL IV SCH
[2020-05-22] MEDS: HYDROXYZINE HCL 10 MG TABLET PO SCH ×5 (05:17→23:26)
[2020-05-22 05:52] LABS: BASOPHILS % (AUTO) 0.1 % (0.0-5.0); EOSINOPHILS % (AUTO) 0.1 % (0.0-8.0); HEMATOCRIT 41.3 % (42-54); LYMPHOCYTES % (AUTO) 2.3 % (21.0-51.0); MEAN CORPUSCULAR HEMOGLOBIN 27.5 pg (27.0-33.0); MEAN CORPUSCULAR HGB CONC 29.1 g/dL (32.0-36.0); MEAN CORPUSCULAR VOLUME 94.7 fL (79-99); MONOCYTES % (AUTO) 3.7 % (3.0-13.0); NEUTROPHILS % (AUTO) 92.8 % (40.0-77.0); PLATELET COUNT (AUTO) 67 K/uL (130-400); RED BLOOD CELL COUNT(AUTO) 4.36 MIL/uL (4.50-6.20); RED CELL DISTRIBUTION WIDTH 17.1 % (11.0-15.5); WHITE BLOOD COUNT (AUTO) 24.4 K/uL (4.8-10.8)
[2020-05-22] MEDS: INSULIN HUMULIN R 100 UNIT/ML 3ML SQ SCH ×4 (05:54→17:00)
[2020-05-22 06:04] LABS: ALBUMIN 1.1 g/dL (3.5-5.0); BILIRUBIN,TOTAL 0.9 mg/dL (0.2-1.0); CREATININE 7.2 mg/dL (0.5-1.5); CRP QUANTITATIVE 150.4 mg/L (0.00-9.0); TOTAL PROTEIN, SERUM 5.2 g/dL (6.0-8.3)
[2020-05-22 06:16] LABS: POTASSIUM 8.7 mmol/L (3.5-5.1)
--- NOTE | 2020-05-22 06:17 | NUR ---
Lab spoke to nurse regarding BUN 136 and potassium 8.7. Nurse will contact MD and continue to monitor patient status.
--- NOTE | 2020-05-22 06:26 | NUR ---
Nurse called Bonifacio Villegas regarding patient potassium 8.7. Spoke to Amna CARUSO- tire classifier point of contact. Will administer medication as directed and continue to monitor.
--- NOTE | 2020-05-22 06:49 | NUR ---
Spoke to Serena Roa(Spouse) regarding specific on patient code status. Carlroshan states she would not like additional treatment options such as dialysis, blood and tube feedings. She also states she would like to discuss withdrawal of care for patient with MD via telephone. Secondary nurse Witnessed conversation and signed resuscitative measures request consent.
[2020-05-22] MEDS: INSULIN NPH 100 UNIT/ML 3ML SQ SCH ×2 (07:30→16:30)
[2020-05-22] MEDS: INSULIN LISPRO 100 UNIT/ML 3ML SQ SCH ×4 (07:30→20:39)
[2020-05-22] MEDS: DEXTROSE 50%-WATER 25 GM/50 ML VIAL IV SCH (07:45)
[2020-05-22] MEDS: FAMOTIDINE/PF 20 MG/2 ML VIAL IV SCH (08:46)
[2020-05-22] MEDS: TACROLIMUS 0.5 MG CAPSULE PO SCH ×2 (08:46→20:29)
[2020-05-22] MEDS: DEXAMETHASONE 4 MG TAB PO SCH (08:47)
[2020-05-22] MEDS: ASCORBIC ACID 500 MG TAB PO SCH (08:47)
[2020-05-22] MEDS: SODIUM BICARBONATE 650 MG TAB PO SCH ×3 (08:54→20:29)
[2020-05-22] MEDS: MYCOPHENOLATE MOFETIL 250 MG CAPSULE PO SCH ×4 (08:54→20:36)
[2020-05-22] MEDS: ENOXAPARIN SODIUM 30 MG/0.3 ML SQ SCH ×2 (09:00→20:29)
[2020-05-22] MEDS: MEROPENEM 500 MG VIAL IVP SCH ×2 (12:33)
[2020-05-22] MEDS: NOREPINEPHRINE BITARTRATE 32 MG in SODIUM CHLORIDE 0.9% 250 ML IV SCH ×2 (14:23→22:13)
[2020-05-22] MEDS: DEXTROSE 50%-WATER 50 ML DISP.SYRIN IV PRN (14:31)
--- NOTE | 2020-05-22 16:00 | NUR ---
DENIA LOVE MD ROUNDED AT BSD. UPDATED ON PT STATUS, ASSESSMENT, AND PLAN OF CARE. NO NEW ORDERS AT THIS TIME.
--- NOTE | 2020-05-22 18:26 | NUR ---
UNABLE TO CONTACT FAMILY RALEIGH MANZANARES ATTEMPTED TO CONTACT FAMILY REGARDING WDLS. NO CALLBACK TODAY. CONTINUE SUPPORTIVE MEASURES. WILL REASSESS TOMORROW.
--- NOTE | 2020-05-22 18:43 | NUR ---
ASYA MANZANARES MD AT D NO NEW ORDERS AT THIS TIME.
--- NOTE | 2020-05-22 21:00 | NUR ---
Spoke to daughter Antonia and Spouse Leda Roa and were under the impression that patient was supposed to have withdrawal life support measures during the day. As per Daughter and Spouse family is onboard to withdraw patient. At this time total care given to patient until MD arrives or receive new orders. Will contact doctor and update.
[2020-05-22] MEDS ORDERED: NOREPINEPHRINE BITARTRATE 1 MG/1 ML ML IV ONE (21:51)
[2020-05-22] MEDS ORDERED: SODIUM CHLORIDE 0.9% 250 ML IV ONE (22:02)
[2020-05-23] VITALS (17 sets, daily range): BP systolic 44–103; BP diastolic 17–38
[2020-05-23] MEDS: MEROPENEM 500 MG VIAL IVP SCH (00:06)
[2020-05-23] MEDS: HYDROXYZINE HCL 10 MG TABLET PO SCH (00:09)
[2020-05-23] MEDS: INSULIN HUMULIN R 100 UNIT/ML 3ML SQ SCH ×2 (05:02)
--- NOTE | 2020-05-23 06:33 | NUR ---
Donor Referral case # [id number]
[2020-05-23] MEDS: MYCOPHENOLATE MOFETIL 250 MG CAPSULE PO SCH ×2 (07:22→07:23)
[2020-05-23] MEDS: INSULIN LISPRO 100 UNIT/ML 3ML SQ SCH (07:30)
[2020-05-23] MEDS: INSULIN NPH 100 UNIT/ML 3ML SQ SCH (07:30)
[2020-05-23] MEDS: DEXTROSE 50%-WATER 25 GM/50 ML VIAL IV SCH (07:34)
--- NOTE | 2020-05-23 08:56 | NUR ---
PATIENT AT [address] STANLEY. FAMILY MEMBERS CONTACTED AND INFORMED TIME OF . STILL PENDING ON A HOME.
--- NOTE | 2020-05-23 10:28 | NUR ---
CM RECD ORDER FOR HOSPICE CHART REVIEWED, ORDER SEEN FOR WITHDRAWAL OF LIFE SUPPORT, CM TO FOLLOW. HOSPICE /GIP DEFERRED AT THIS TIME. Addendum: 05/23/20 at 1029 by CINDY NGO RN CM Amended: Links added.
== END 2020-05-23 08:45 | disposition expired | DRG 207 ==
LOC: EDH 05:07 → EDHIP 05:08 → 2AH 05-02 17:29 → 2CV 05-03 20:41 → 2AH 05-04 03:41 → 2DH 05-08 05:59 → 2AH 05-10 01:04 → 2CV 05-18 10:23
PROVIDERS: ADMIT Internal Medicine; ATTEND Internal Medicine
PROC: 30233K1 Transfusion of Nonautologous Frozen Plasma into Peripheral Vein, Percutaneous Approach (ICD-10-PCS; principal; 2020-05-18)
PROC: 5A1955Z Respiratory Ventilation, Greater than 96 Consecutive Hours (ICD-10-PCS; 2020-05-18)
PROC: 0BH17EZ Insertion of Endotracheal Airway into Trachea, Via Natural or Artificial Opening (ICD-10-PCS; 2020-05-18)
DX: U07.1 COVID-19 (principal); J12.89 Other viral pneumonia; J96.01 Acute respiratory failure with hypoxia; A41.89 Other specified sepsis; R65.21 Severe sepsis with septic shock; N18.6 End stage renal disease; J15.6 Pneumonia due to other Gram-negative bacteria; N17.9 Acute kidney failure, unspecified; E87.1 Hypo-osmolality and hyponatremia; G93.49 Other encephalopathy; E87.0 Hyperosmolality and hypernatremia; I12.0 Hypertensive chronic kidney disease with stage 5 chronic kidney disease or end stage renal disease; Z94.0 Kidney transplant status; Z99.11 Dependence on respirator [ventilator] status; R13.10 Dysphagia, unspecified; E78.5 Hyperlipidemia, unspecified; E78.00 Pure hypercholesterolemia, unspecified; E11.22 Type 2 diabetes mellitus with diabetic chronic kidney disease; E11.649 Type 2 diabetes mellitus with hypoglycemia without coma; E11.65 Type 2 diabetes mellitus with hyperglycemia; E86.0 Dehydration; E87.5 Hyperkalemia; F03.90 Unspecified dementia, unspecified severity, without behavioral disturbance, psychotic disturbance, mood disturbance, and anxiety; I25.10 Atherosclerotic heart disease of native coronary artery without angina pectoris; R62.7 Adult failure to thrive; Z66 Do not resuscitate; Z68.24 Body mass index [BMI] 24.0-24.9, adult; Z99.2 Dependence on renal dialysis; Z87.891 Personal history of nicotine dependence; Z79.01 Long term (current) use of anticoagulants; Z79.4 Long term (current) use of insulin; Z79.899 Other long term (current) drug therapy; Z78.9 Other specified health status; Z86.19 Personal history of other infectious and parasitic diseases
CPT/HCPCS: 0099U; 31500; 36415; 36430; 36600; 70450; 71045; 71250; 80048; 80053; 80197; 81001; 82435; 82550; 82728; 82803; 82947; 82948; 83036; 83605; 83615; 83690; 83735; 83880; 84100; 84132; 84145; 84295; 84484; 84550; 85018; 85025; 85027; 85378; 85610; 85730; 86140; 86850; 86900; 86901; 86927; 87040; 87088; 87804; 92610; 93005; 94002; 94003; A4344; C1751; G0378; J0456; J0610; J0692; J0696; J1100; J1650; J1720; J1815; J1940; J2185; J2920; J2930; J3010; J3490; J7030; J7040; J7050; J7070; J7507; J7517; J8540; P9017; U0003